=== PATIENT | male | born 1940 | race Caucasian/White ===

== ENCOUNTER 2023-06-09 20:52 | Emergency (ER) | payer MEDICARE, MEDICAID, SELFPAY ==
[2023-06-09] VITALS (11 sets, daily range): BP systolic 161–172; BP diastolic 82–93; PULSE 46–61; RESP 12–20; TEMP 36.4; O2SAT 95–98
--- NOTE | ~2023-06-09 | CT_ITS ---
EXAMINATION: CT brain wo con DATE: 06/09/2023 21:11 INDICATION: code stroke . TECHNIQUE: Computed tomography (CT) of the head was performed without intravenous contrast. The mA wa s adjusted according to patient size. Iterative reconstruction technique was employed. The dose-lengt h product was 681.00 mGy-cm. COMPARISON: None. FINDINGS: No acute intracranial hemorrhage or extra-axial fluid collection. No hydrocephalus, mass, or herniation. No acute ischemic infarct. Unremarkable dural venous sinus attenuation. No acute osseous abnormality. Mucosal thickening and opacification in the left ethmoid air cells, the remaining aerated spaces are clear. Moderate atrophy and severe chronic white matter change. Atherosclerotic intracranial calcification. Bilateral lens replacements. Serpiginous and linear hyperdensity in left medial frontal lobe gyri and adjacent to the the left external capsule, likely laminar necrosis. IMPRESSION: No acute intracranial process. Results reported telephonically to Dr. Mandujano by Dr. London at 9:16 PM on 06/09/2023. Reviewed, dictated and finalized at location K. IMPRESSION: No acute intracranial process. Results reported telephonically to Dr. Mandujano by Dr. London at 9:16 PM on .
--- NOTE | ~2023-06-09 | XR_ITS ---
EXAMINATION: XR chest 1V portable Exam Date/Time: 06/09/2023 21:20 CDT HISTORY: AMS Comparison: None. RESULT: Lines, tubes, and devices: None. Lungs and pleura: Senescent change, otherwise clear. Cardiomediastinal silhouette: Arch calcifications. Other: No acute osseous or upper abdominal finding. IMPRESSION: No acute cardiopulmonary process. Reviewed, dictated and finalized at location K.
[2023-06-09 21:00] LABS: Glucose Point of Care 162 mg/dl (65-105)
--- NOTE | 2023-06-09 21:03 | ECG_ITS ---
Measurements Intervals [place] Rate: 53 P: 11 ID: [id number] QRS: -1 QRSD: 102 T: 50 QT: 454 QTc: 429 Interpretive Statements SINUS BRADYCARDIA WITH FIRST DEGREE AV BLOCK WITH OCCASIONAL SUPRAVENTRICULAR PREMATURE COMPLEXES LEFT VENTRICULAR HYPERTROPHY AND ST-T CHANGE [VOLTAGE CRITERIA PLUS ST/T ABNORMALITY] INTERPRETATION BASED ON A DEFAULT AGE OF 40 YEARS NO PREVIOUS ECG AVAILABLE FOR COMPARISON Electronically Signed On 06-10-2023 12:15:43 CDT by Erwin Solorio M.D.
[2023-06-09 21:12] LABS: Basophils Percent Auto 0.3 % (0.2-1.2); Eosinophils Absolute Auto 0.2 K/mm3 (0-0.3); Eosinophils Percent Auto 2.6 % (0-4.4); Hematocrit 37.1 % (42.0-52.0); Hemoglobin 12.2 g/dL (14.0-18.0); Immature Granulocyte Absolute 0.01 K/mm3 (0.00-0.031); Immature Granulocyte Percent A 0.1 % (0-0.5); Lymphocytes Absolute Auto 1.62 K/mm3 (0.9-3.2); Lymphocytes Percent Auto 22.2 % (18.3-44.2); Mean Corpuscular HGB Conc 32.9 g/dl (32-36); Mean Corpuscular Volume 91.4 fl (80-100); Monocytes Absolute Auto 0.5 K/mm3 (0.1-0.6); Monocytes Percent Auto 7.1 % (2.6-8.5); Neutrophils Absolute Auto 4.9 K/mm3 (1.3-6.7); Neutrophils Percent Auto 67.7 % (45.5-73.1); Platelet Count Result 177 k/mm3 (150-375); Red Blood Count 4.06 M/mm3 (4.6-6.20); Red Cell Distribution Width 12.3 % (11.5-14.5); White Blood Count 7.3 K/mm3 (4.5-10.0)
[2023-06-09 21:23] LABS: Ethanol < 10 mg/dL (<10)
[2023-06-09 21:25] LABS: Alanine Aminotransferase 18 U/L (6-50); Albumin Level 3.8 g/dL (3.5-5.1); Alkaline Phosphatase 81 U/L (38-126); Anion Gap 3 mmol/L (8-16); Aspartate Amino Transferase 23 U/L (17-59); Bilirubin,Total 0.6 mg/dL (0.2-1.3); Blood Urea Nitrogen 14 mg/dL (9-20); Calcium 9.5 mg/dL (8.4-10.2); Carbon Dioxide 28 mmol/L (22-30); Chloride 106 mmol/L (98-107); Estimated CRCL calculation 68 ml/min; Estimated Glomerular Filt Rate > 60; Glucose 160 mg/dL (65-110); Potassium 3.4 mmol/L (3.4-5.0); Sodium 137 mmol/L (137-145)
--- NOTE | 2023-06-09 21:28 | PC.NURSE ---
Daughter at bedside reports that pt's speech is normal at this time.
[2023-06-09 21:36] LABS: Troponin I < 0.012 ng/mL (0.000-0.034)
[2023-06-09 21:44] LABS: Partial Thromboplastin Time 32.1 SECONDS (22.3-36.8)
[2023-06-09 22:09] LABS: Influenza A QL RT-PCR Negative (Negative); Influenza B QL RT-PCR Negative (Negative); RSV RNA, RT-PCR Negative (Negative); SARS-CoV-2 RNA PCR Negative (Negative)
[2023-06-09 22:39] LABS: Appearance Urine Clear (Clear); Bacteria Urine None Seen /hpf; Bilirubin Urine Negative (Negative); Blood Urine Negative (Negative); Calcium Oxalate Crystals Urine Present /hpf; Color Urine Yellow (Yellow); Glucose Urine UA Negative (Negative); Ketones Urine Negative (Negative); Leukocyte Esterase Ur Trace LEU/UL (Negative); Nitrate Urine Negative (Negative); Non Pathogenic Casts 0-2; Protein Urine Negative (Negative); RBC Urine 0-2 /hpf (0-2); Specific Grav Ur 1.018 (1.001-1.035); Squamous Epithelial Cell Urine None seen /hpf (Few); Urobilinogen Urine 0.2 mg/dL (<2.0); WBC Urine 0-5 /hpf; pH Urine 5.5 (5.0-9.0)
[2023-06-09 22:50] LABS: Add Urine Microscopic? YES
--- NOTE | 2023-06-10 00:15 | ED.GENADULT ---
HPI - General Adult General Chief complaint: Altered Mental Status Stated complaint: symptomatic bradycardia Time Seen by Provider: 06/09/23 21:00 History of Present Illness HPI narrative: Patient brought to the emergency department by EMS from his assisted facility. 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 The daughter was with him tonight when around 8 PM he started to have speech difficulties. He is not on anticoagulation due to having a hemorrhagic stroke. When he arrived to the emergency department his speech was clear without focal deficits. His speech would change at times but did not last. His daughter is at bedside and states that this happens sometimes since he had the stroke. Related Data Allergies Allergy/AdvReac Type Severity Reaction Status Date / Time hydrocodone Allergy Unknown Verified 06/09/23 21:03 minocycline Allergy Unknown Verified 06/09/23 21:15 morphine Allergy Unknown Verified 06/09/23 21:16 red dye Allergy Unknown Verified 06/09/23 21:16 Review of Systems Review of Systems: Review of systems negative except what is documented in the HPI Exam Narrative: GENERAL: Well-appearing, well-nourished, and in no acute distress. HEAD: Normocephalic, atraumatic. EYES: PERRLA and EOMI. ENT: Nares clear, no rhinorrhea or epistaxis. Mucous membranes moist. NECK: Supple. CHEST: Clear to auscultation. No respiratory distress. HEART: Regular rate and rhythm. ABDOMEN: Soft, nontender, nondistended. EXTREMITIES: Normal range of motion. No edema. SKIN: Warm, dry, no rash. NEURO: No focal deficits. Alert and oriented x3. PSYCH: Normal mood and affect. Course Course Emergency Course: Patient would vary from NIH score of 4 due to speech mild changes to 0 changes. Possible TIA but he cannot have any intervention due to having a hemorrhagic stroke. In addition, this is a residual speech change secondary to the stroke. He is back to normal and has been at his baseline for a couple hours. His daughter is getting very frustrated requesting to leave. They are frustrated about the second troponin that was ordered. His urinalysis was negative vital signs are stable and the additional work-up is normal. Will DC to home to follow-up with his primary care provider Vital Signs Vital signs: Vital Signs Temperature 36.4 C 06/09/23 21:17 Pulse Rate 50 L 06/09/23 21:17 Oxygen Delivery Room Air 06/09/23 21:17 Temperature 36.4 C 06/09/23 21:17 Pulse Rate 46 L 06/09/23 23:02 Respiratory Rate 16 06/09/23 23:02 Blood Pressure 161/92 H 06/09/23 22:46 Pulse Oximetry 96 06/09/23 23:02 Oxygen Delivery Room Air 06/09/23 21:17 Medical Decision Making Vital Signs Vital Signs: Vital Signs Temperature 36.4 C 06/09/23 21:17 Pulse Rate 50 L 06/09/23 21:17 Oxygen Delivery Room Air 06/09/23 21:17 Temperature 36.4 C 06/09/23 21:17 Pulse Rate 46 L 06/09/23 23:02 Respiratory Rate 16 06/09/23 23:02 Blood Pressure 161/92 H 06/09/23 22:46 Pulse Oximetry 96 06/09/23 23:02 Oxygen Delivery Room Air 06/09/23 21:17 Lab Data 06/09/23 21:04 06/09/23 21:04 Labs: Lab Results 06/09/23 06/09/23 06/09/23 Range/Units 20:56 21:04 21:22 WBC 7.3 (4.5-10.0) K/mm3 RBC 4.06 L (4.6-6.20) M/mm3 Hgb 12.2 L (14.0-18.0) g/dL Hct 37.1 L (42.0-52.0) % MCV 91.4 (80-100) fl MCH 30.0 (26-34) pg MCHC 32.9 (32-36) g/dl RDW 12.3 (11.5-14.5) % Plt Count 177 (150-375) k/mm3 MPV 10.0 (7.4-10.4) fl Immature Gran % (Auto) 0.1 (0-0.5) % Neut % (Auto) 67.7 (45.5-73.1) % Lymph % (Auto) 22.2 (18.3-44.2) % Brown % (Auto) 7.1 (2.6-8.5) % Eos % (Auto) 2.6 (0-4.4) % Baso % (Auto) 0.3 (0.2-1.2) % Lymph # (Auto) 1.62 (0.9-3.2) K/mm3 Brown # (Auto) 0.5 (0.1-0.6) K/mm3 Eos # (Auto) 0.2
== END 2023-06-10 00:34 ==
PROVIDERS: Emergency Provider Emergency Medicine; PCP Internal Medicine
DX: I69.128 Other speech and language deficits following nontraumatic intracerebral hemorrhage (principal); R47.9 Unspecified speech disturbances; Z20.822 Contact with and (suspected) exposure to COVID-19; I69.198 Other sequelae of nontraumatic intracerebral hemorrhage; R26.89 Other abnormalities of gait and mobility; I44.0 Atrioventricular block, first degree; I49.1 Atrial premature depolarization; I51.7 Cardiomegaly
CPT/HCPCS: 36415; 70450; 71045; 80053; 80307; 81001; 82948; 84484; 85025; 85610; 85730; 87637; 93005; 99284

== ENCOUNTER 2023-10-10 09:25 | Outpatient (CLI) | payer MEDICARE, OTHER, MEDICAID, SELFPAY ==
--- NOTE | ~2023-10-10 | CT_ITS ---
EXAMINATION: CT abdomen pelvis w con DATE: 10/10/2023 10:11 INDICATION: Localized swelling, mass, lump TECHNIQUE: Computed tomography (CT) of the abdomen and pelvis was performed with 100 CC Omnipaque 350 intravenous contrast. Automated exposure control and iterative reconstruction technique were employe d. Exam dose: 844.13 mGy-cm total exam DLP. COMPARISON: None. FINDINGS: There is minimal atelectasis at the lung bases. Coronary artery calcifications. No pericard ial or pleural effusion. Approximately 7 x 12 mm hypoattenuating right hepatic lesion, statistically most likely a cyst or hem angioma. No other hepatic space-occupying mass lesion is detected. There are multiple filling defects in the dependent aspect of the gallbladder consistent with choleli thiasis. No gallbladder wall thickening or pericholecystic fluid or fat stranding. No bile duct or pancreatic duct dilatation. No pancreatic mass lesion or calcification. Splenic size is within normal range. Normal morphology of the adrenal glands. Multiple probable right renal cysts, the largest approximately 2 cm maximal dimension. Up to 2.4 cm l eft renal cyst. Approximately 3.5 mm nonobstructing mid to lower right renal calculus. Approximately 5.5 mm and 7 mm posterior mid left renal nonobstructing calculi. There is extensive atherosclerotic calcification of the abdominal aorta, celiac, superior mesenteric, renal , iliac and femoral arteries. There are multiple diverticula of the colon. No CT evidence of diverticulitis. No bowel obstruction o r intraperitoneal free air. Status post prostatectomy. Julian's prosthesis. L2 vertebral hemangioma. Diffuse idiopathic skeletal hyperostosis of the thoracic spine. Degenerative changes of the apophyseal joints with grade 1 anterolisthesis at L5-S1. IMPRESSION: 7 x 12 mm hypoattenuating right hepatic lesion, statistically most likely cyst or malgorzata ioma Cholelithiasis Bilateral renal cysts Bilateral nonobstructive nephrolithiasis Diverticulosis of the colon Status post prostatectomy; Julian's prosthesis for urinary continence. Reviewed, dictated and finalized at Location A. Reviewed, dictated and finalized at location B. LRY SETTER IMPRESSION: 7 x 12 mm hypoattenuating right hepatic lesion, statistically most likely cyst or hemangioma Cholelithiasis Bilateral renal cysts Bilateral nonobstructive nephrolithiasis Diverticulosis of the colon Status post prostatectomy; Julian's prosthesis for urinary continence.
[2023-10-10 10:05] LABS: Estimated Glomerular Filt Rate > 60
== END 2023-10-10 09:26 | disposition home or self-care (01) ==
LOC: ANHIMG 09:31
PROVIDERS: PCP Internal Medicine; Visit Provider Internal Medicine
DX: R22.2 Localized swelling, mass and lump, trunk (principal); K76.9 Liver disease, unspecified; K80.20 Calculus of gallbladder without cholecystitis without obstruction; N20.0 Calculus of kidney; K57.90 Diverticulosis of intestine, part unspecified, without perforation or abscess without bleeding; Z90.79 Acquired absence of other genital organ(s)
CPT/HCPCS: 74177; Q9967

== ENCOUNTER 2025-02-20 13:53 | Emergency (ER) | payer MEDICARE, OTHER, MEDICAID, SELFPAY ==
--- NOTE | ~2025-02-20 | CT_ITS ---
CTA brain carotid Ordering provider: Darell Sullivan MD History: . weakness, headache, right-sided weakness, history of stroke. Comparison: 06/09/2023 Technique: CT angiogram head and neck was performed following timed intravenous injection of contrast . Thin slice axial images and reformatted coronal images were obtained. Three dimensional reformatted images of the brain were also obtained using a [employer] workstation. FINDINGS: HEAD: --ANTERIOR AND MIDDLE CEREBRAL ARTERIES AND BRANCHES: Normal caliber and contour. --INTERNAL CAROTID ARTERIES: Moderate atheromatous disease bilaterally resulting in mild stenosis but no occlusion. --BASILAR ARTERY AND BRANCHES: Mild atheromatous disease but no stenosis or occlusion. --POSTERIOR CEREBRAL ARTERIES: Normal caliber and contour --POSTERIOR COMMUNICATING ARTERIES: Not well visualized likely related to congenital absence or small size. --ANEURYSM: None visualized. --BRAIN: The ventricles are enlarged. The dilatation of the ventricles is proportional to the degree of sulcal prominence, not uncommon in the senescent brain. Decreased attenuation is identified within the periventricular white matter, likely secondary to micr ovascular ischemic disease, in a patient of this age. There is no mass, mass effect or midline shift. There is no abnormal extra-axial fluid collection or intracranial hemorrhage. Visualized paranasal sinuses are clear. The mastoid air cells are well aerated. No acute displaced fractures within the overlying cranium. NECK: --RIGHT CERVICAL CAROTID SYSTEM: Moderate atheromatous disease of the carotid bulb and proximal inter nal carotid artery. Percent stenosis per NASCET criteria is 5% No carotid dissection. --LEFT CERVICAL CAROTID SYSTEM: Mild atheromatous disease of the carotid bulb and proximal internal c arotid artery without significant stenosis. Percent stenosis per NASCET criteria is 12% No carotid d issection. --VERTEBRAL ARTERIES: Right vertebral artery dominant. Normal caliber and contour. --VISUALIZED AORTIC ARCH AND BRANCHING VESSELS: Moderate atheromatous disease but no significant sten osis. --SOFT TISSUES: Unremarkable --CERVICAL SPINE: Age appropriate degenerative changes. IMPRESSION: 1. Moderate atheromatous disease. 2. Percent stenosis per NASCET criteria is 5% on the right and 12% on the left. 3. No large vessel occlusion is appreciated. Reviewed, dictated and finalized at location A. IMPRESSION: 1. Moderate atheromatous disease. 2. Percent stenosis per NASCET criteria is 5% on the right and 12% on the lef t. 3. No large vessel occlusion is appreciated.
--- NOTE | ~2025-02-20 | XR_ITS ---
EXAMINATION: XR chest 1V portable DATE: 02/20/2025 14:04 INDICATION: Weakness TECHNIQUE: frontal view of the chest was obtained. COMPARISON: Chest radiograph dated 06/09/2023 FINDINGS: Mild opacities at the bilateral lung bases. No pulmonary edema, pleural effusion or pneumothorax. The cardiomediastinal silhouette is normal. IMPRESSION: 1. Mild bibasilar opacities and favor atelectasis over pneumonia. Reviewed, dictated and finalized at location A.
--- NOTE | 2025-02-20 13:56 | ECG_ITS ---
Test Date: 2025-02-20 14:05:56 Measurements Intervals [place] Rate: 60 P: 102 NH: 221 QRS: -14 QRSD: 85 T: 72 QT: 404 QTc: 405 Interpretive Statements SINUS RHYTHM WITH FIRST DEGREE AV BLOCK WITH OCCASIONAL VENTRICULAR PREMATURE COMPLEXES INFERIOR INFARCT, AGE INDETERMINATE BASELINE ARTIFACT- I, II, III, AVR, AVL, AVF, V4-V6 ABNORMAL ECG No previous ECG available for comparison Electronically Signed On 02-20-2025 17:21:05 CDT by Ronnie Rooney D.O.
[2025-02-20 13:57] VITALS: BP 134/70; PULSE 62; RESP 18; TEMP 36.6; O2SAT 94
--- NOTE | 2025-02-20 14:06 | ED.GENADULT ---
HPI - General Adult General Chief complaint: Headache Stated complaint: headache, weakness Time Seen by Provider: 02/20/25 13:55 History of Present Illness HPI narrative: 84-year-old male with prior history of CVA presented emergency department for evaluation for increased dizziness. Patient states this morning when he went ambulate he had increased dizziness which he described as a movement sensation. Denies any new weakness. Patient had been reportedly having a headache but patient denies having any headache last night or today. Patient does have right-sided deficit since his prior CVA, patient denies any acute worsening of the residual right-sided weakness. Patient does confirm that he has been taking therapy for the right leg weakness. Related Data Allergies Allergy/AdvReac Type Severity Reaction Status Date / Time hydrocodone Allergy Unknown Verified 06/09/23 21:03 minocycline Allergy Unknown Verified 06/09/23 21:15 morphine Allergy Unknown Verified 06/09/23 21:16 red dye Allergy Unknown Verified 06/09/23 21:16 Review of Systems Review of Systems: All systems reviewed & are unremarkable except as noted in HPI and below Exam Narrative: APPEARANCE: Well appearing, no pain, no distress, well-nourished. HEAD: normocephalic, atraumatic. EYES: PERRLA/EOMI, conjunctivae clear. NOSE: Normal no drainage EARS:TMS clear with good light reflex. THROAT: Pharynx clear, no exudate. NECK: Supple. No adenopathy, no masses. RESPIRATORY: Airway patent, respirations nonlabored. Clear to auscultation bilaterally, no rales, rhonchi, wheezing. CARDIOVASCULAR: Regular rate and rhythm without murmurs rubs or gallops. ABDOMINAL: Soft, nontender, nondistended, normal bowel sounds MUSCULOSKELETAL: Moves all extremities. Strength/ROM intact, No edema, No calf tenderness. NEURO: Alert. Cranial nerves II through XII intact. No right upper extremity weakness but does have right lower extremity weakness which she reports is at baseline. No new focal deficit SKIN: Warm, dry. Normal Color Course Vital Signs Vital signs: Vital Signs Temperature 98 F 02/20/25 13:57 Pulse Rate 62 02/20/25 13:57 Respiratory Rate 18 02/20/25 13:57 Blood Pressure 134/70 02/20/25 13:57 Pulse Oximetry 94 02/20/25 13:57 Oxygen Delivery Room Air 02/20/25 13:57 Temperature 98 F 02/20/25 13:57 Pulse Rate 64 02/20/25 14:47 Respiratory Rate 18 02/20/25 14:47 Blood Pressure 130/86 02/20/25 14:47 Pulse Oximetry 95 02/20/25 14:47 Oxygen Delivery Room Air 02/20/25 13:57 Medical Decision Making MDM Narrative Medical decision making narrative: 84 old male presenting to the emergency department for evaluation for vertigo symptoms. Patient states his dizziness is worsened with sitting up and improves with lying down. Patient denies any new focal numbness or weakness. Patient is afebrile with no leukocytosis hemoglobin of 13.3. Patient has an INR of 1.0. Patient has no acute abnormalities on his CMP and patient was negative influenza RSV and for COVID. Patient denies any recent coughs colds or fevers. Patient's chest x-ray showed atelectasis. Head CT showed no acute intracranial abnormalities. Patient did feel significantly improved with the meclizine. Patient family updated on results of the workup. Patient will be prescribed meclizine. Differential Diagnosis Differential Diagnosis: TIA, CVA, benign positional vertigo, central vertigo, dehydration, orthostatic hypotension, UTI, COVID, RSV, influenza Vital Signs Vital Signs: Vital Signs Temperature 98 F 02/20/25 13:57 Pulse Rate 62 02/20/25 13:57 Respiratory Rate 18 02/20/25 13:57 Blood Pressure 134/70 02/20/25 13:57 Pulse Oximetry 94 02/20/25 13:57 Oxygen Delivery Room Air 02/20/25 13:57 Temperature 98 F 02/20/25 13:57 Pulse Rate 64 02/20/25 14:47 Respiratory Rate 18 02/20/25 14:47 Blood Pressure 130/86 02/20/25 14:47 Pulse Oximetry 95 02/20/25 14:47 Oxygen Delivery Room Air 02/20/25 13:57 Lab Data Lab results reviewed: Yes I reviewed the patient's lab results. 02/20/25 14:11 02/20/25 14:35 Labs: Lab Results 02/20/25 02/20/25 02/20/25 Range/Units 14:11 14:31 14:35 WBC 7.8 (4.5-10.0) K/mm3 RBC 4.38 L (4.6-6.20) M/mm3 Hgb 13.3 L (14.0-18.0) g/dL Hct 40.3 L (42.0-52.0) % MCV 92.0 (80-100) fl MCH 30.4 (26-34) pg MCHC 33.0 (32-36) g/dl RDW 12.6 (11.5-14.5) % Plt Count 173 (150-375) k/mm3 MPV 11.2 H (7.4-10.4) fl Immature Gran % (Auto) 0.3 (0-0.5) % Neut % (Auto) 70.8 (45.5-73.1) % Lymph % (Auto) 17.0 L (18.3-44.2) % Burke % (Auto) 8.6 H (2.6-8.5) % Eos % (Auto) 2.8 (0-4.4) % Baso % (Auto) 0.5 (0.2-1.2) % Lymph # (Auto) 1.33 (0.9-3.2) K/mm3 Burke # (Auto) 0.7 H (0.1-0.6) K/mm3 Eos # (Auto) 0.2 (0-0.3) K/mm3 Baso # (Auto) 0.0 (0.0-0.1) K/mm3 Abs Immat Gran (auto) 0.02 (0.00-0.031) K/mm3 Absolute Neuts (auto) 5.5 (1.3-6.7) K/mm3 Absolute Nucleated RBC 0.000 (0.0-0.012) K/mm3 Nucleated RBC % 0.0 (0.0-0.2) % PT 13.1 (11.1-14.7) Seconds INR 1.0 APTT 29.6 (22.3-36.8) Seconds Sodium 139 (137-145) mmol/L Potassium 3.9 (3.4-5.0) mmol/L Chloride 104 (98-107) mmol/L Carbon Dioxide 27 (22-30) mmol/L Anion Gap 8 (4-12) mmol/L BUN 21 H (9-20) mg/dL Creatinine 0.93 (0.7-1.3) mg/dL Estim Creat Clear Calc Not Reportable Estimated GFR > 60 (59 - ) Glucose 114 H (65-110) mg/dL POC Capillary Glucose 118 H (65-105) mg/dl Lactic Acid 1.2 (0.7-2.0) mmol/L Calcium 9.8 (8.4-10.2) mg/dL Total Bilirubin 0.6 (0.2-1.3) mg/dL AST 20 (17-59) U/L ALT 15 (6-50) U/L Alkaline Phosphatase 74 (38-126) U/L Total Protein 6.9 (6.3-8.2) g/dL Albumin 3.8 (3.5-5.1) g/dL Influenza A (RT-PCR) Negative (Negative) Influenza B (RT-PCR) Negative (Negative) RSV (RT-PCR) Negative (Negative) SARS-CoV-2 RNA (RT-PCR) Negative (Negative) Imaging Data Radiologist's impression: Impressions Chest X-Ray 02/20/25 14:12 IMPRESSION: 1. Mild bibasilar opacities and favor atelectasis over pneumonia. Head/Neck CTA 02/20/25 15:39 IMPRESSION: 1. Moderate atheromatous disease. 2. Percent stenosis per NASCET criteria is 5% on the right and 12% on the left. 3. No large vessel occlusion is appreciated. Discharge Plan Discharge Clinical Impression: Vertigo Patient Disposition: NH Senior Care/Asst Living Condition: Stable Instructions: Antibiotic Form, Benign Paroxysmal Positional Vertigo (DC) Additional Instructions: Meclizine as needed for vertigo control. Have close follow-up with primary care physician for additional outpatient testing. If you have any worsening symptoms then please call or return to the emergency department. Patient Language: Citizen Of [place] Prescriptions: New meclizine 25 mg tablet 25 mg PO BID PRN (Reason: dizziness) 7 Days Qty: 14 0RF Follow-up/Referrals: Benjamin,MD Marcio [Primary Care Provider] -
--- OUTSIDE RECORDS SUMMARY | 2025-02-20 14:07 | XMS_ITS | Encounter Summary ---
Author Organization [facility] Healthcare Address [address] [place] [address] Care Team Providers Care Satellite Tv Technician Installer Name Role Phone Kyaw Guy MD Primary Care Provider Ralph Delaney MD Unavailable [phone] Encounter Details Date Type Department Care Team (Late st Contact Info) Description 09/16/2024 Orders Only [facility] [place] Information Management [address] [place] [address] Scanning, Provider Social History Tobacco Use Types Packs/Day Years Used Date Smoking Tobacco: Never Smokeless Tobacco: Never Alcohol Use Standard Drinks/Week Comments Yes 0 (1 standard drink = 0.6 oz pur e alcohol) AUDIT-C Answer Date Recorded Q1: How often do you have a drink containing alcohol? Never 08/29/2023 Q2: How many drinks containi ng alcohol do you have on a typical day when you are drinking? Patient does not drink Q3: How often do you have si x or more drinks on one occasion? 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 Gender Identity Male 12/11/2023 6:23 PM CDT Sexual Orientation Straight 12/11/2023 6: 23 PM CDT documented as of this encounter Plan of Treatment Not on file documented as of this encounter Procedures Procedure Name Priority Date/Time Associated Diagnosis Comments SCAN - LABS 09/16/2024 documented in this encounter Results * SCAN - LABS (09/16/2024) us Provider Scanning Final Result documented in this encounter Visit Diagnoses Not on filedocumented in this encounter Care Teams Satellite Tv Technician Installer Relationship Specialty Start Date End Date Kyaw Guy MD PCP - General 12/06/16 Ralph Delaney MD [address] [place] [address] [place] [address] Referring Physician Ophthalmology 04/05/20 documented as of this encounter
--- OUTSIDE RECORDS SUMMARY | 2025-02-20 14:07 | XMS_ITS | Encounter Summary ---
Author Organization [facility] Address [address] [facility] [address] [place] [address] Care Team Providers Care Chimney Builder Name Role Phone Kyaw Guy MD Primary Care Provider Kyaw Guy MD Primary Care Provider Kyaw Guy MD Primary Care Provider Kyaw Guy MD Primary Care Provider Kyaw Guy MD Primary Care Provider Kyaw Guy MD Primary Care Provider Kyaw Guy MD Primary Care Provider Miley Cantor RN Unavailable [phone] Ralph Delaney MD Unavailable [phone] Lise Falcon LPN Unavailable [phone] Lise Falcon LPN Unavailable [phone] Lise Falcon LPN Unavailable [phone] Reason for Referral * Diagnostic Imaging (Routine) - Closed Specialty Diagnoses / Procedures Referred By Contac t Referred To Contact Procedures Dexa Axial Skeleton Bone Density 1 or 2 Site [facility] Health Information Management [address] [place] [address] Phone: tel: fax: [facility] Referral ID Status Reason Start Date Expiration Date Visits Re quested Visits Authorized [id number] Closed 04/08/2019 2020 1 1 Encounter Details Date Type Department Care Team (Late st Contact Info) Description 04/07/2003 Orders Only [facility] Health Information Management [address] [place] [address] Kyaw Guy MD [address] [place] [address] [address] Social History Tobacco Use Types Packs/Day Years Used Date Smoking Tobacco: Never Assessed Sex and Gender Information Value Date Recorded Sex Assigned at Not on file 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 Gender Identity Male 12/11/2023 6:23 PM CDT Sexual Orientation Straight 12/11/2023 6: 23 PM CDT documented as of this encounter Plan of Treatment Not on file documented as of this encounter Procedures Procedure Name Priority Date/Time Associated Diagnosis Comments DEXA AXIAL SKELETON BONE DENSITY 1 OR MORE SITES Schedule Routine, Read Routine (OP Routine) 04/07/2003 documented in this encounter Results * Dexa Axial Skeleton Bone Density 1 or 2 Site (04/07/2003) Anatomical Region Laterality Modality Body N/A Radiographic Lena ging Felicita Provider MD [facility] DXA PROCEDURES Final Result documented in this encounter Visit Diagnoses Not on filedocumented in this encounter Care Teams Chimney Builder Relationship Specialty Start Date End Date Kyaw Guy MD PCP - General 12/06/16 Kyaw Guy MD PCP - General 11/20/12 12/05/16 Kyaw Guy MD PCP - General 05/08/12 11/19/12 Kyaw Guy MD PCP - General 10/15/07 05/07/12 Kyaw uGy MD PCP - General 03/02/07 10/14/07 Kyaw Guy MD PCP - General 01/22/07 03/01/07 Kywa Guy MD PCP - General 01/15/07 01/21/07 Miley Cantor, MARTY [address] [place] [address] [address] [place] [address] Inhalation Therapist 10/15/17 12/21/17 Ralph Delaney MD [address] [place] [address] [place] [address] Referring Physician Ophthalmology 04/05/20 Lise Falcon LPN [address] [place] [address] [address] [place] [address] ACO Care Memorial Designer 07/23/22 08/01/22 Lise Falcon LPN [address] [facility] [address] [place] [address] ACO Care Memorial Designer 08/02/22 11/14/22 Lise Falcon LPN [address] [facility] [facility] [address] [place] [address] ACO Care Memorial Designer 11/19/22 12/03/22 documented as of this encounter
--- OUTSIDE RECORDS SUMMARY | 2025-02-20 14:07 | XMS_ITS | Referral Summary ---
Author Organization [facility] Address [address] [place] [address] Care Team Providers Care Clinical Education Coordinator Name Role Phone Kyaw Guy MD Primary Care Provider Ralph Delaney MD Unavailable [phone] Encounters Date Type Department Care Team Description 12/28/2024 Orders Only [facility] Primary Care at [address] [place] [id number] Kyaw Guy MD 12/28/2024 Telephone [facility] Primary Care at [address] [place] [address] Kyaw Guy MD Symptom Based Call from Last 3 Months Allergies Active Allergy Reactions Criticality Noted Date Comments Emollient Combination No. 16 Unknown Minocycline Syncope High 12/24/2010 Morphine Hypotension,Other (S ee comments) High 09/10/2010 Other reaction(s): Hypotension Passed out Other Rash Medium 04/16/2019 Received name: Skin Cleanser Skin Cleanser Rash Medium Hydrocodone-Acetamino phen Hallucinations Medium 02/10/2013 Medications fluticasone propionate (FLONASE) 50 mcg/actuation nasal spray Administer 1 spray into each nostril daily 48 mL 11 2 Active rosuvastatin (CRESTOR) 20 mg tablet Take 1 tablet (20 mg total) by mouth daily 2 Active acetaminophen (TYLENOL) 325 mg tablet Take 2 tablets (650 mg total) by mouth every 4 (four) hours as needed for pain 30 tablet 2 Active amLODIPine (NORVASC) 10 mg tablet Take 1 tablet (10 mg total) by mouth daily 30 tablet 11 2 Active sertraline (ZOLOFT) 100 mg tablet Take 1 tablet (100 mg total) by mouth daily For mood 90 tablet 3 3 Active cyanocobalamin (Vitamin B-12) 1,000 mcg tabletIndications: Prevention of Vitamin B12 Deficiency Take 1 tablet (1,000 mcg total) by mouth daily Active senna-docusate (PERICOLACE) 8.6-50 mg Take 1 tablet by mouth 2 (two) times a day before breakfast and dinner Active cholecalciferol (VITAMIN D-3) 5,000 unit capsule Take 1 capsule (5,000 Units total) by mouth daily Active ascorbic acid 500 mg tablet,chewable Take 1 tablet/chew tab (500 mg total) by mouth daily Active ferrous sulfate 325 mg (65 mg of elemental iron) tablet Take 1 tablet (325 mg total) by mouth daily Active lansoprazole (PREVACID SOLUTAB) 30 mg disintegrating tablet daily 2 Active famotidine (PEPCID) 20 mg tabletIndications: Laryngeal spasm Take 1 tablet (20 mg total) by mouth nightly 90 tablet 3 3 Active atorvastatin (LIPITOR) 40 mg tablet 3 Active carvediloL (COREG) 25 mg tablet 3 Active aspirin 81 mg enteric coated tablet Take 1 tablet (81 mg total) by mouth daily 3 Active clotrimazole (LOTRIMIN) 1 % external solutionIndication s:Otitis externa, fungal, left ear Apply topically 2 (two) times a day 30 mL 4 025 Active diphenhydrAMINE-zi nc acetate creamIndications:P ruritus of Skin,skin irritation Apply topically 3 (three) times a day as needed for itching 35 g 11 5 Active Active Problems Problem Noted Date Diagnosed Date Hemiplegia and hemiparesis f ollowing cerebral infarction affecting right dominant side 03/09/2024 Late effects of cerebral ischemic stroke 023 Morbid (severe) obesity due to excess calories 0 10/30/2021 Medicare annual wellness visit, subsequent 04/27 History of superficial keratectomy OS 11/15/2020 Assessment & Plan (12/27/2020 2:04 PM CDT): SND both eyes (OU), OS>OD Hx of Super K left eye (OS) 09/27/20 visual acuity (VA) improved to 20/25 with current specs Better intraocular pressure (IOP) after reducing Tobradex Patient wants to improve his vision to 20/20 left eye (OS); the limitation of vision discussed Plan Discontinue all meds and only use artificial tears RTC prn Assessment & Plan (11/15/2020 2:34 PM VALVE MAKER): SND OU Now POW#6 Super K left eye (OS) 09/27/20 SND OS>OD Doing well with vision, slightly elevated intraocular pressure (IOP) Plan - Removal of BCL left eye (OS) today - continue TD BID left eye (OS), combigan MJ (or Timoptic and alphagan BID) OD RTC 4-6 weeks 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 Assessment & Plan (10/18/2020 2:40 PM VALVE MAKER): SND OU Now POW#3 Super K OS Hx of bilateral corneal swelling (Pachymetry 646 um OD; 642 um OS) SND OS>OD Med BCL and Tobradex 1gtt QID post-op Plan - keep BCL for total of 6 weeks - continue TD QID OS RTC 3 weeks Assessment & Plan (10/02/2020 1:56 PM VALVE MAKER): SND OU Now POD5 Super K OS Hx of bilateral corneal swelling (Pachymetry 646 um OD; 642 um OS) Persistent SND OS>OD Med BCL and Tobradex 1gtt QID post-op Toradol as needed (20# given) RTC 2 weeks, sooner if any problem Assessment & Plan (09/30/2020 9:07 PM VALVE MAKER): POD#3 superficial keratectomy OS with Dr. Aguilera for SND (09/27/20). Presents to [facility] after hours for concern for dislodged BCL, unable to adjust/remove and no replacements at home. Vision improved, pupils normal, no APD BCL correctly in place upon examination with good fit. Did not remove and kept in place. Continue tobradex 1gtt QID Keep clinic follow up with Dr. Aguilera for 10/02/20. Will notify him of visit. Call sooner for any questions/concerns or if worried BCL has dislodged/removed again. Pt/daughter expressed understanding. Assessment & Plan (09/30/2020 6:54 PM VALVE MAKER): POD#3 superficial keratectomy OS with Dr. Aguilera for SND (09/27/20). Presents to [facility] after hours for dislodged BCL, unable to adjust/remove and no replacements. BCL removed. New BCL replaced. Continue tobradex 1gtt QID Keep clinic follow up with Dr. Aguilera for 10/02/20. Will notify him of visit. Assessment & Plan (09/27/2020 2:58 PM VALVE MAKER): Hx of SND and possible superk left eye (OS) today Patient c/o fluctuating vision in both eyes No pain Hx of bilateral corneal swelling (Pachymetry 646 um OD; 642 um OS), Likely due to tight lens OU Persistent SND OS>OD Failed BCL trials Superficial K OS today R/B/A of sup K discussed RBA of sup K discussed. Sup k performed after informed consent without difficulty. Med BCL and Tobradex 1gtt QID post-op Toradol as needed (20# given) RTC 5 days , sooner if any problem Assessment & Plan (07/05/2020 4:09 PM CDT): 2 week F/u bilateral corneal swelling and possible superk OD Patient c/o fluctuating vision in both eyes Says that his eyes were great the day after his last visit but then deteriorated again No pain Persistent SND OS>OD Failed BCL trials Last visit has bilateral corneal swelling (Pachymetry 646 um OD; 642 um OS), Likely due to tight lens OU Rec Superficial K OS then OD if needed. Pt wants OD first initially to be ready for deer hunting season. But the hunting season is over, so he is more flexible for the eye to have surgery. RBA of sup K discussed. Pt wishes to proceed. The need of BCL after sup K discussed Will cpntinue Angelica 128 QID OU and RTC 2 weeks for possible Sup K Assessment & Plan (06/21/2020 12:06 PM CDT): SND OS>OD Today has bilateral corneal swelling (Pachymetry 646 um OD; 642 um OS), Likely due to tight lens OU BCL removed OU Rec Super K OS then OD if needed. Pt wants OD first to be ready for deer hunting season. RBA of superK discussed. Pt wishes to proceed. The need of BCL after sup K discussed Will use Angelica 128 QID OU and RTC 2 weeks for possible SuperK OD. Assessment & Plan (06/05/2020 1:36 PM CDT): SND OS>OD Rec Super K OS then OD if needed. Pt wants OD first to be ready for deer hunting season. RBA of superK discussed. Pt wishes to proceed. Schedule SuperK OD. Assessment & Plan (04/05/2020 3:39 PM CDT): Self referred for second opinion for blurred vision. 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 Offered RBA of obs vs rigid gas permeable (RGP) vs SuperK RTC PRN, if pt returns - schedule consultation with Dr. Aguilera. Pt requests Dr. 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 Overview (12/12/2016): MIXED HYPERLIPIDEMIA Gastroesophageal reflux disease 01/22/2014 Overview (12/12/2016): ESOPHAGEAL REFLUX Atrial fibrillation 07/27/2013 Overview (12/12/2016): Atrial Fibrillation Resolved Problems Problem Noted Date Diagnosed Date Resolved Date Otitis externa, fungal, left ear 07/28/2024 10/02/2024 Assessment & Plan (08/20/2024 12:12 PM VALVE MAKER): Avoid ear cleaning techniques Avoid water to ears Follow up as needed Assessment & Plan (07/28/2024 2:57 PM VALVE MAKER): Lotrimin 10 drops into Left EAR, NOT EYE, twice daily for 14 days Avoid ear cleaning techniques Avoid water to ears Follow up in 2-3 weeks to recheck Then yearly for ear checks How to Use Ear Drops Bilateral impacted cerumen 07/28/2024 0 10/02/2024 Assessment & Plan (07/28/2024 2:58 PM VALVE MAKER): Lotrimin 10 drops into Left EAR, NOT EYE, twice daily for 14 days Avoid ear cleaning techniques Avoid water to ears Follow up in 2-3 weeks to recheck Then yearly for ear checks How to Use Ear Drops 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 10/02/19 Laryngeal spasm 01/15/2023 10/02/2024 Assessment & Plan (01/15/2023 4:24 PM CDT): Pepcid 20 mg at bedtime 50 ounces of caffeine free and soda free fluid daily Continue to work with speech therapy to strengthen voice Laryngopharyngeal reflux discussed and Handout provided Severe protein-calorie malnutrition 11/16/2022 10/02/2024 Confusion 11/14/2022 10/02/2024 Stroke determined by clinical assessment 07/13/2022 10/02/2024 Hemoptysis 05/02/2022 10/02/2024 Dizziness and giddiness 03/14/202209/09 Prediabetes 10/30/2021 10/02/2024 Shoulder tendonitis, left 03/22/2019 01 / Chronic fatigue 03/22/2019 04/16/2019 Gross hematuria 02/25/2018 04/15/2018 Hemoptysis 05/09/2017 10/02/2024 Assessment & Plan (12/14/2021 11:25 AM CDT): Nasal saline spray (Simply saline, Little Remedies, [place], [place]) 2 second sprays or 2 squeezes into each nostril while looking down over the sink, do not need to sniff in twice daily Have Humidifier on the Highest setting on the CPAP No masses, polyps or ulcers in the Upper Airway on Scope today Assessment & Plan (09/13/2021 3:38 PM VALVE MAKER): Likely 2/2 cpap machine in combination with warfarin use INR in office 4.0. 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 Discussed the risks of hypertension. Insomnia 03/26/2012 10/02/2024 Overview (12/12/2016): Insomnia Calculus of kidney 03/26/2012 Overview (12/13/2016): Kidney stone Malignant neoplasm of prostate 03/07/2011 04/15/2018 Overview (12/12/2016): Prostate cancer Depression 03/07/2011 03/22/2019 Overview (12/13/2016): Depression Dehydration 10/02/2024 Immunizations Immunization Administration Dates Next Due Influenza, Quadrivalent, Hig h Dose, Preservative Free, Intrr 08/13/2021,08/25/2020 Influenza, Split 08/15/2010 Influenza, Trivalent, High D ose, Split, Preservative Free, Intramuscular 06/22/2019,06/24/2018,07/11/2017,06/10,07/18/2015 Influenza, Trivalent, IM (MDV) 4,07/08/2013,07/01/2012,06/19,06/21/2009,08/27/2008 Influenza, Unspecified 10/01/2024(Deferr ed: Patient Refused),06/30/2023(Deferred: Patient Refused),11/17/2022(Deferred: Patient Refused),05/04/2020(Deferred: Patient Refused - vaccine not being given) Pneumococcal Conjugate PCV 13 07/18/2015 Pneumococcal Polysaccharide PPV23 04/27/2021 Social History Tobacco Use Types Packs/Day Years Used Date Smoking Tobacco: Never Smokeless Tobacco: Never Tobacco Cessation:Counseling Given: Not Answered Alcohol Use Standard Drinks/Week Comments Yes 0 [...] on file Legal Sex Male 7:27 PM VALVE MAKER Gender Identity Male 12/11/2023 6:23 PM CDT Sexual Orientation Straight 12/11/2023 6: 23 PM CDT Last Filed Vital Signs Vital Sign Reading Time Taken Comments Blood Pressure 116/70 10/01/2024 3:21 PM VALVE MAKER Pulse 71 10/01/2024 3:21 PM VALVE MAKER Temperature 36.6 C (97.8 F) 10/01/2024 3:21 PM VALVE MAKER Respiratory Rate 16 10/01/2024 3:21 PM VALVE MAKER Oxygen Saturation 96% 10/01/2024 3:21 PM VALVE MAKER Inhaled Oxygen Concentration - - Weight 104.8 kg (231 lb) 10/01/2024 3:21 PM VALVE MAKER Height 182.9 cm (6') 10/01/2024 3:21 PM VALVE MAKER Body Mass Index 31.33 10/01/2024 3:21 PM VALVE MAKER Plan of Treatment Not on file Procedures Procedure Name Priority Date/Time Associated Diagnosis Comments PSA SCREEN Routine 04/18/2021 12:04 PM CDT Urine frequency HM COLONOSCOPY Routine 03/31/2007 from Last 3 Months or Most Recently Relevant to Health Maintenance Results * PSA screen (04/18/2021 12:04 PM CDT) PSA <0.1 < OR = 4.0 ng/mL [facility]-Eddi bowman Comment: The total PSA value from this assay system is standardized against the WHO standard. The test result will be approximately 20% lower when compared to the equimolar-standardized total PSA (Wendie Juan Jose). Comparison of serial PSA results should be interpreted with this fact in mind. This test was performed using the Siemens chemiluminescent method. Values obtained from different assay methods cannot be used interchangeably. PSA levels, regardless of value, should not be interpreted as absolute evidence of the presence or absence of disease. Blood specimen (specimen) 04/18/2021 12:04 PM CDT 04/18/2021 12:05 PM CDT us Kyaw Guy MD LAB BLOOD ORDERABLES Fi nal Result [facility] [address] [place] [address] * HM COLONOSCOPY (03/31/2007) Colonoscopy Abnormal Comment:Subacute diverticuli tis, 8 mm polyp. us Historical Provider MD HEALTH MAINTENANCE Final Result from Last 3 Months or Most Recently Relevant to Health Maintenance Insurance [facility]IC[facility] [place]IC[place] [address] Advance Directives For more information, please contact: [phone] Documents on File Type Date Recorded Patient Brick Tester Expl anation ADVANCE DIRECTIVE 11/15/2022 1:21 PM DNR * Full Code (Latest Code Status on File) Date Activated Date Inactivated Comments 11/14/2022 4:49 PM 11/18/2022 7:09 PM * Full Code Date Activated Date Inactivated Comments 07/13/2022 2:19 PM 07/22/2022 7:03 PM Care Teams Clinical Education Coordinator Relationship Specialty Start Date End Date Kyaw Guy MD PCP - General 12/06/16 Ralph Delaney MD [address] [place] [address] Referring Physician Ophthalmology 04/05/20
--- OUTSIDE RECORDS SUMMARY | 2025-02-20 14:07 | XMS_ITS ---
Author Organization [facility] Address [address] [place] [address] Care Team Providers Care Practice Billing Associate Name Role Phone Kyaw Guy MD Primary Care Provider Ralph Delaney MD Unavailable [phone] Active Problems Problem Noted Date Diagnosed Date [...] prn Assessment & Plan (11/15/2020 2:34 PM OUTREACH SPECIALIST): SND OU Now POW#6 Super K left [...] 04/05/2020 Assessment & Plan (10/18/2020 2:40 PM OUTREACH SPECIALIST): SND OU Now POW#3 Super K OS Hx of bilateral corneal swelling (Pachymetry 646 um OD; 642 um OS) SND OS>OD Med BCL and Tobradex 1gtt QID post-op Plan - keep BCL for total of 6 weeks - continue TD QID OS RTC 3 weeks Assessment & Plan (10/02/2020 1:56 PM OUTREACH SPECIALIST): SND OU Now POD5 Super K OS Hx of bilateral corneal swelling (Pachymetry 646 um OD; 642 um OS) Persistent SND OS>OD Med BCL and Tobradex 1gtt QID post-op Toradol as needed (20# given) RTC 2 weeks, sooner if any problem Assessment & Plan (09/30/2020 9:07 PM OUTREACH SPECIALIST): POD#3 superficial keratectomy OS with Dr. Aguilera for SND (09/27/20). Presents to U after hours for concern for dislodged BCL, [...] understanding. Assessment & Plan (09/30/2020 6:54 PM OUTREACH SPECIALIST): POD#3 superficial keratectomy OS with Dr. Aguilera for SND (09/27/20). Presents to [facility] after hours for dislodged BCL, unable to adjust/remove and no replacements. BCL removed. New BCL replaced. Continue tobradex 1gtt QID Keep clinic follow up with Dr. Aguielra for 10/02/20. Will notify him of visit. Assessment & Plan (09/27/2020 2:58 PM OUTREACH SPECIALIST): Hx of SND and possible superk left [...] Atrial fibrillation 07/27/2013 Overview (12/12/2016): Atrial Fibrillation Current Treatment and Therapy Plans No current plan information found. Past Treatment and Therapy Plans No past plan information found. Lifetime Dose Tracking * Chemical Lifetime Dose Automatic Entry Manual Entr y DLP 3,169 mGycm 3,169 mGycm 0 mGycm Resolved Problems Problem Noted Date Diagnosed Date Resolved Date Otitis externa, fungal, left ear 07/28/2024 10/02/2024 Assessment & Plan (08/20/2024 12:12 PM OUTREACH SPECIALIST): Avoid ear cleaning techniques Avoid water to ears Follow up as needed Assessment & Plan (07/28/2024 2:57 PM OUTREACH SPECIALIST): Lotrimin 10 drops into Left EAR, NOT EYE, twice daily for 14 days Avoid ear cleaning techniques Avoid water to ears Follow up in 2-3 weeks to recheck Then yearly for ear checks How to Use Ear Drops Bilateral impacted cerumen 07/28/2024 0 10/02/2024 Assessment & Plan (07/28/2024 2:58 PM OUTREACH SPECIALIST): Lotrimin 10 drops into Left EAR, NOT [...] Prediabetes 10/30/2021 10/02/2024 Shoulder tendonitis, left 03/22/2019 Chronic fatigue 03/22/2019 04/16/2019 Gross hematuria 02/25/2018 04/15/2018 Hemoptysis 05/09/2017 10/02/2024 Assessment & Plan (12/14/2021 11:25 AM CDT): Nasal saline spray (Simply saline, Little Remedies, [place], [place]) 2 second sprays or 2 squeezes into each nostril while looking down over the sink, do not need to sniff in twice daily Have Humidifier on the Highest setting on the CPAP No masses, polyps or ulcers in the Upper Airway on Scope today Assessment & Plan (09/13/2021 3:38 PM OUTREACH SPECIALIST): Likely 2/2 cpap machine in combination with warfarin use INR in office 4.0. 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
--- OUTSIDE RECORDS SUMMARY | 2025-02-20 14:07 | XMS_ITS | Clinical Summary ---
Author Organization [facility] Address [address] [place] [address] Phone Care Team Providers Care Corporate Development Officer Name Role Phone Kyaw Guy MD Primary Care Provider [phone] Allergies Active Allergy Reactions Criticality Noted Date Comments Hydrocodone-Acetaminophen Hallucination Low 013 Minocycline Syncope Medium 12/24/2010 Morphine Hypotension Medium 12/24/2010 Skin Cleanser Rash Low Medications sertraline (ZOLOFT) 50 mg tablet Take 100 mg by mouth daily. Active amLODIPine (NORVASC) 10 mg tablet Take 10 mg by mouth daily. Active ascorbic acid, vitamin C, (VITAMIN C) 500 mg tablet Take 500 mg by mouth daily. Active atorvastatin (LIPITOR) 40 mg tablet Take 40 mg by mouth daily. Active bisacodyL (DULCOLAX) 10 mg Suppository Insert 10 mg by rectum daily. Active magnesium citrate (Citroma) solution Take 30 mL by mouth one time only. Active carvediloL (COREG) 25 mg tablet Give 1.5 tablet by mouth two times day for CHF. Active ferrous sulfate 325 mg (65 mg iron) tablet Take 325 mg by mouth daily. Active fluticasone propionate (FLONASE) 50 mcg/spray [place], Suspension nasal inhaler Administer 1 [place] in each nostril daily. Active magnesium hydroxide (MILK OF MAGNESIA) 400 mg/5 mL suspension Take 30 mL by mouth 1 time daily as needed for Constipation. Active sennosides-docu sate sodium (Senna Plus) 8.6-50 mg tablet Take 1 Tablet by mouth daily. Active aspirin (ECOTRIN EC) 81 mg Tablet, Delayed Release (E.C.) Take 81 mg by mouth daily. Active sacubitriL-vals rebecca (Entresto) 49-51 mg Tablet Take by mouth 2 times daily. Active famotidine (PEPCID) 20 mg tablet Take 20 mg by mouth 2 times daily. Active hydrALAZINE (APRESOLINE) 10 mg tablet Take 10 mg by mouth 4 times daily. Active hydrocortisone (CORTAID) 1 % Cream Apply to affected area 2 times daily. Active hydrOXYzine HCL (ATARAX) 25 mg tablet Take 25 mg by mouth 3 times daily as needed for Itching. Active mirabegron (MYRBETRIQ) 25 mg Extended Release 24 hour tablet Take 25 mg by mouth daily. Active vibegron (Gemtesa) 75 mg Tablet Take by mouth. 025 Discontinued Active Problems Patient Care Coordination No te Formatting of this note migh t be different from the original. Desktop Administrator- Dr. Missy Campoverde Office Dilshad Louis MD- [facility] Heart [facility] V[facility] ( [facility]) Problem Noted Date Diagnosed Date Acute chest pain 04/18/2017 JULIET (stress urinary incontinence), male 02/23/20 13 Coronary artery disease invo lving [place] coronary artery of [place] heart with unstable angina pectoris 02/13/2013 Essential hypertension 02/13/2013 Dyslipidemia 02/13/2013 Stress incontinence 01/02/2011 PAF (paroxysmal atrial fibrillation) MATIAS on CPAP Acute encephalopathy Resolved Problems Problem Noted Date Diagnosed Date Resolved Date Atrial fibrillation 05/14/2013 08/14/20 16 Encounters Date Type Department Care Team Description 02/07/2025 Results Follow-Up [facility] [address] [place] [address] [place] [phone] Linda Burroughs RN ECHO COMPLETE - CONTRAST AND STRAIN IF INDICATED 02/03/2025 3:00 PM CDT Office Visit [facility] [address] [place] [address] [address] [place] [address] Dilshad Louis MD Aortic valve stenosis, etiology of cardiac valve disease unspecified (Primary Dx); Essential hypertension; Paroxysmal atrial fibrillation (CMS/HCC); Coronary artery disease involving [place] coronary artery of [place] heart without angina pectoris; MATIAS (obstructive sleep apnea); Dyslipidemia 02/03/2025 2:00 PM CDT - 02/03/2025 11:59 PM CDT Hospital Encounter [facility] Diagnostic Cardiology Services [address] [phone] Dilshad Louis MD Discharge Disposition: Home or Self Care 01/04/2025 External Device Data STL ABSTRACTION Provider, Abstract 12/07/2024 External Device Data STL ABSTRACTION Provider, Abstract 11/24/2024 External Device Data STL ABSTRACTION Provider, Abstract from Last 3 Months Immunizations Immunization Administration Dates Next Due Influenza Seasonal Unspecified Formulation IM ,06/18/2016 Family History Medical History Relation Name Comments Lung Cancer Father Heart Disease Mother Relation Name Status Comments Daughter 1 Alive Daughter 2 Alive Daughter 3 Alive Daughter 4 Alive Father Mother Social History Tobacco Use Types Packs/Day Years Used Date Smoking Tobacco: Former Cigarettes 1 45 0 04/08/1960 - 04/08/2005 Tobacco Cessation:Counseling Given: Not Answered Alcohol Use Standard Drinks/Week Comments Yes 0 (1 standard drink = 0.6 oz pur e alcohol) rare Sex and Gender Information Value Date Recorded Sex Assigned at Not on file Legal Sex Male 4:[address] BAILIFF [place] SHERIFF Gender Identity Not on file Sexual Orientation Not on file Occupation Industry Job Start Date Job End Date Not on file Not on file Not on file Not on file Last Filed Vital Signs Vital Sign Reading Time Taken Comments Blood Pressure 128/76 02/03/2025 3:01 PM CDT Pulse 70 02/03/2025 3:01 PM CDT Temperature 36.3 C (97.4 F) 06/07/2021 3:12 PM CDT Respiratory Rate 15 04/07/2019 6:03 AM CDT Oxygen Saturation 93% 02/03/2025 3:01 PM CDT Inhaled Oxygen Concentration - - Weight 104.3 kg (230 lb) 02/03/2025 3:01 PM CDT Height 170.2 cm (5' 7) 02/03/2025 3:01 PM CDT Body Mass Index 36.02 02/03/2025 3:01 PM CDT Plan of Treatment Upcoming Encounters Date Type Department Care Team (Late st Contact Info) Description 08/11/2025 3:[address] [place]IFF [place] Office Visit [facility] V[facility] - [facility] [address] [facility] [address] [place] [address] Dilshad Louis MD [address] [facility] [address] [place] [address] Health Maintenance Due Date Last Done Comments DTAP/TDAP/TD VACCINES (1 - Tdap) 1959 ZOSTER VACCINE (1 of 2) 1990 RSV VACCINE (60+ or ) (1 - 1-dose 75+ series) 2015 INFLUENZA VACCINE (#1) 2024 , 08/25/2020, 06/22/2019, Additional history exists PNEUMOCOCCAL VACCINE 50+ YEARS Completed 04/27/2021 , 07/18/2015 Medical Devices Implanted Type Area Bartacker Device Identifier Shelf Expiration Date Model / Serial / Lot Log [id number] - Urinary Sphincter Tray - 1 - Kit Accry Iz Ams 800 [id number] Implanted:Qty : 1 on 01/02/2011 at [facility] Other N/A: Scrotum [employer]MS [employer] 12/21/2015 [id number] / / [id number] Kit Accry Iz Ams 800 [id number] - [id number] Implanted:Qty : 1 on 02/22/2013 by Sree Wiley MD at [facility] Other Right: Groin [employer]MS [employer] 02/12/2018 [id number] / / [id number] Description:perineum Log 55400 - Urinary Sphincter Tray - 1 - Sphnctr [id number] Press Baln [id number] Implanted:Qty : 1 on 01/02/2011 at [facility] Penile Right: Groin [employer]MS [employer] 11/07/2015 [id number] / / [id number] Promus Premier Piter-04/19/2017 Implanted:08/2017 by Garett Galloway MD (Quantity not on file) Stent Coronary [employer] 06/15/2018 / / [id number] Description:MID PDA Promus Premier Piter-04/19/2017 Implanted:08/2017 by Garett Galloway MD (Quantity not on file) Stent Coronary [employer] 05/24/2018 / / [id number] Description:MID PDA Synergy-2018 Implanted: by Garett Galloway MD (Quantity not on file) Stent [id number] 08/25/2020 / / [id number] Description:placed in the RC A Ams 800 Urinary Control System Control Pump Implanted:Qty : 1 on 01/02/2011 at [facility] Scrotum [employer]MS [employer] 12/20/2015 [id number] / / [id number] Ams 800 Urinary Control System Cuff Implanted:Qty : 1 on 01/02/2011 at [facility] Urethra [employer]MS [employer] 11/21/2012 [id number] / / [id number] Ams 800 Urinary Control System Pressure Regulating Balloon Implanted:Qty : 1 on 02/22/2013 by Sree Wiley MD at [facility] Right: Groin [employer]MS [employer] 11/05/2017 / [id number] / [id number] Description:pressure range 7 1-80 cm H2O Procedures Procedure Name Priority Date/Time Associated Diagnosis Comments ECHO COMPLETE Routine 02/03/2025 3:01 PM CDT Aortic valve stenosis, etiology of cardiac valve disease unspecified Essential hypertension Paroxysmal atrial fibrillation (CMS/HCC) Coronary artery disease involving [place] coronary artery of [place] heart without angina pectoris from Last 3 Months Results * ECHO COMPLETE - CONTRAST AND STRAIN IF INDICATED (02/03/2025 3:01 PM CDT) EJECTION FRACTION 57 INTERFACE SYSTEM 02/03/2025 2:11 PM CDT Narrative INTERFACE SYSTEM - 02/06/2025 3:12 PM CDT [address] [place] [address] [email or web address] Transthoracic Echocardiogram Patient: Stanislav Velazquez Study ID: [id number] Gender: M : 1940 Age: 84 Race: JUSTA Height 170.2cm Study Date: 02/03/2025 Weight: 102.1kg Access. #: [id number] BP: *Referring Physician:James Louis M.D., Dilshad Louis M.D., Bruce *Ordering Physician:James Louis M.D., Bruce healthcare insurance sales agent: Nurse: Indications: Atrial fibrillation. Aortic stenosis. STUDY CONCLUSIONS: SUMMARY: - Left ventricle: The cavity size was normal. Wall thickness was increased in a pattern of mild LVH. Global systolic function is normal. For Epic reporting: the left ventricular ejection fraction is 57% . Wall motion is normal; there are no regional wall motion abnormalities. Diastolic function assessment consistent with abnormal left ventricular relaxation (grade 1 diastolic dysfunction). - Aortic valve: Trileaflet. The leaflets are moderately thickened and moderately calcified. Mobility is restricted. There was moderate stenosis. The peak systolic velocity is 3.6m/sec. The mean systolic gradient is 24mm Hg. The valve area is 1.2cm^2. - Mitral valve: The leaflets are mildly thickened. Mild regurgitation. - Left atrium: The atrium is moderately dilated. - Right ventricle: The cavity size is normal. Systolic function is normal. - Tricuspid valve: Mild regurgitation. - Pulmonary arteries: The peak systolic pressure is 24mm Hg. Cardiac Anatomy: LEFT VENTRICLE: The cavity size was normal. Wall thickness was increased in a pattern of mild LVH. Global systolic function is normal. For Epic reporting: the left ventricular ejection fraction is 57% . Wall motion is normal; there are no regional wall motion abnormalities. Diastolic function assessment consistent with abnormal left ventricular relaxation (grade 1 diastolic dysfunction). AORTIC VALVE: Trileaflet. The leaflets are moderately thickened and moderately calcified. Mobility is restricted. There was moderate stenosis. No significant regurgitation. The mean systolic gradient is 24mm Hg. The peak systolic gradient is 51mm Hg. The LVOT to aortic valve VTI ratio is 0.27. The valve area is 1.2cm^2. The ratio of LVOT to aortic valve peak velocity is 0.28. AORTA: Aortic root: The root is normal-sized. MITRAL VALVE: The leaflets are mildly thickened. Mild regurgitation. The mean diastolic gradient is 2mm Hg. The peak diastolic gradient is 6mm Hg. LEFT ATRIUM: The atrium is moderately dilated. RIGHT VENTRICLE: The cavity size is normal. Systolic function is normal. PULMONIC VALVE: Structurally normal valve. No significant regurgitation. TRICUSPID VALVE: Structurally normal valve. Mild regurgitation. RIGHT ATRIUM: The atrium was normal in size. SYSTEMIC VEINS: Inferior vena cava: The IVC is normal-sized. PERICARDIUM: There is no pericardial effusion. Measurements Left ventricle Value Ref 01/22/2024 IVS, ED, LAX (H) 1.4 cm 0.6 - 1.0 KAREN, LAX (L) 3.7 cm 4.2 - 5.8 3.5 KAREN/bsa, LAX (L) 1.7 cm/m^2 2.2 - 3.0 1.7 IVS, ED (H) 1.4 cm 0.6 - 1.0 1.2 PW, ED (H) 1.3 cm 0.6 - 1.0 1.1 EDV, 2-p (N) 148 ml 62 - 150 ESV, 2-p (H) 64 ml 21 - 61 EF, 2-p (N) 57 % 52 - 72 SV, 2-p 85 ml --------- SV/bsa, 2-p 39.7 ml/m^2 --------- E', lat herman, TDI (L) 6.1 cm/sec >=10.0 6.6 E/e', lat herman, TDI (N) 13 <=13 10 E', med herman, TDI (L) 4.8 cm/sec >=7.0 4.8 E/e', med herman, TDI 16 --------- 13 E', avg, TDI 5.4 cm/sec --------- 5.7 E/e', avg, TDI (N) 14 <=14 11 LVOT Value Ref 01/22/2024 Diam, S 2.4 cm --------- 2.1 Area 4.5 cm^2 --------- 3.5 Peak virgil, S 1.01 m/sec --------- 1.17 VTI, S 27.2 cm --------- 25.7 Right ventricle Value Ref 01/22/2024 KAREN minor ax, A4C base (N) 3.7 cm 2.5 - 4.1 KAREN minor ax, A4C mid (H) 3.6 cm 1.9 - 3.5 KAREN major ax, A4C (H) 9.3 cm 5.9 - 8.3 TAPSE, MM (N) 2.8 cm >=1.7 Pressure, S 28 mm Hg --------- 41 S' lateral (N) 15.7 cm/sec >=9.5 Left atrium Value Ref 01/22/2024 AP dim, ES (H) 5.2 cm 3.0 - 4.0 4.5 AP dim index, ES (H) 2.4 cm/m^2 1.5 - 2.3 2.2 SI dim, A4C 7.1 cm --------- 5.9 Area ES, A4C (H) 25 cm^2 <=20 19 Area/bsa ES, A4C 11.69 cm^2/m^2 --------- 9.17 SI dim, A2C 6.4 cm --------- 6.6 SI dim, shorter 6.4 cm --------- 5.9 Vol, ES, 1-p A2C (H) 98 ml 18 - 58 60 Vol/bsa, ES, 1-p A2C (H) 46 ml/m^2 11 - 43 29 Vol, ES, 2-p 87 ml --------- 56 Vol/bsa, ES, 2-p (H) 41 ml/m^2 16 - 34 27 LA/Ao root ratio 1.37 --------- 1.18 Right atrium Value Ref 01/22/2024 SI dim, ES, A4C (H) 5.9 cm 3.4 - 5.3 SI dim/bsa, ES, A4C (N) 2.8 cm/m^2 1.8 - 3.0 Area, ES, A4C (H) 21 cm^2 10 - 18 Vol, ES, 1-p A4C 63 ml --------- Vol/bsa, ES, 1-p A4C (N) 29 ml/m^2 11 - 39 Aortic valve Value Ref 01/22/2024 Peak v, S 3.6 m/sec --------- 3.6 Mean v, S 2.18 m/sec --------- 2.57 VTI, S 100.0 cm --------- 78.6 Mean grad, S 24 mm Hg --------- 30 Peak grad, S 51 mm Hg --------- 51 LVOT/AV, VTI ratio 0.27 --------- 0.33 MONA, VTI 1.2 cm^2 --------- 1.1 MONA/bsa, VTI 0.58 cm^2/m^2 --------- 0.55 LVOT/AV, Vpeak ratio 0.28 --------- 0.33 MONA, Vmax 1.3 cm^2 --------- 1.1 MONA/bsa, Vmax 0.59 cm^2/m^2 --------- 0.55 Mitral valve Value Ref 01/22/2024 Mean v, D 0.53 m/sec --------- 0.65 Peak E 0.76 m/sec --------- 0.65 Peak A 1.17 m/sec --------- 1.13 Decel time 369 ms --------- 447 PHT 142 ms --------- Mean grad, D 2 mm Hg --------- 2 Peak grad, D 6 mm Hg --------- 2 Peak E/A ratio 0.6 --------- 0.6 A-VTI 41.3 cm --------- 39.4 MVA, PHT 1.6 cm^2 --------- MVA/bsa, PHT 0.73 cm^2/m^2 --------- Pulmonic valve Value Ref 01/22/2024 Peak v, S 1.02 m/sec --------- 1.09 Peak grad, S 4 mm Hg --------- 5 Aortic root Value Ref 01/22/2024 Root diam, 3.8 cm --------- 3.8 Ascending aorta Value Ref 01/22/2024 AAo AP diam, S 3.5 cm --------- 3.9 AAo AP diam/bsa, S 1.6 cm/m^2 --------- 1.9 Pulmonary artery Value Ref 01/22/2024 Pressure, S 24 mm Hg --------- 36 Systemic veins Value Ref 01/22/2024 Estimated RA pressure 5 mm Hg --------- 25 Legend: (L) and (H) dariel values outside specified reference range. (N) michel values inside specified reference range. Procedure data: Procedure information: A transthoracic echocardiogram was performed. Scanning was performed from the parasternal, apical, and subcostal acoustic windows. Transthoracic echocardiogram. Complete 2D, complete spectral Doppler, and color Doppler. Birthdate: Patient birthdate: 1940. Age: Patient is 84year(s) old. Sex: gender: male. Height: 170.2cm. 67in. Weight: 102.1kg. 225lb. Body mass index: 35.2kg/m^2. Body surface area: 2.13m^2. Study date: Study date: 02/03/2025. Study time: 02:11 PM. Prepared and Electronically Authenticated Pranav Louis Bruce [id number]:12:50 Procedure Note Dilshad Louis MD - 02/06/2025 [place] [address] [email or web address] Transthoracic Echocardiogram Patient: Stanislav Velazquez Study ID: [id number] Gender: M : 1940 Age: 84 Race: [facility] Height 170.2cm Study Date: 02/03/2025 Weight: 102.1kg Access. #: [id number] BP: *Referring Physician:James Louis M.D., Dilshad Louis M.D., Bruce *Ordering Physician:James Louis M.D., Bruce healthcare insurance sales agent: Nurse: Indications: Atrial fibrillation. Aortic stenosis. STUDY CONCLUSIONS: SUMMARY: - Left ventricle: The cavity size was normal. Wall thickness was increasedin a pattern of mild LVH. Global systolic function is normal. For Epic reporting: the left ventricular ejection fraction is 57% . Wall motionis normal; there are no regional wall motion abnormalities. Diastolicfunction assessment consistent with abnormal left ventricular relaxation (grade1 diastolic dysfunction). - Aortic valve: Trileaflet. The leaflets are moderately thickened and moderately calcified. Mobility is restricted. There was moderatestenosis. The peak systolic velocity is 3.6m/sec. The mean systolic gradient is24mm Hg. The valve area is 1.2cm^2. - Mitral valve: The leaflets are mildly thickened. Mild regurgitation. - Left atrium: The atrium is moderately dilated. - Right ventricle: The cavity size is normal. Systolic function isnormal. - Tricuspid valve: Mild regurgitation. - Pulmonary arteries: The peak systolic pressure is 24mm Hg. Cardiac Anatomy: LEFT VENTRICLE: The cavity size was normal. Wall thickness was increasedin a pattern of mild LVH. Global systolic function is normal. For Epicreporting: the left ventricular ejection fraction is 57% . Wall motion is normal;there are no regional wall motion abnormalities. Diastolic function assessment consistent with abnormal left ventricular relaxation (grade 1 diastolic dysfunction). AORTIC VALVE: Trileaflet. The leaflets are moderately thickened and moderately calcified. Mobility is restricted. There was moderatestenosis. No significant regurgitation. The mean systolic gradient is 24mm Hg. Thepeak systolic gradient is 51mm Hg. The LVOT to aortic valve VTI ratio is 0.27.The valve area is 1.2cm^2. The ratio of LVOT to aortic valve peak velocityis 0.28. AORTA: Aortic root: The root is normal-sized. MITRAL VALVE: The leaflets are mildly thickened. Mild regurgitation.The mean diastolic gradient is 2mm Hg. The peak diastolic gradient is 6mmHg. LEFT ATRIUM: The atrium is moderately dilated. RIGHT VENTRICLE: The cavity size is normal. Systolic function isnormal. PULMONIC VALVE: Structurally normal valve. No significantregurgitation. TRICUSPID VALVE: Structurally normal valve. Mild regurgitation. RIGHT ATRIUM: The atrium was normal in size. SYSTEMIC VEINS: Inferior vena cava: The IVC is normal-sized. PERICARDIUM: There is no pericardial effusion. Measurements Left ventricle Value Ref 01/22/2024 IVS, ED, LAX (H) 1.4 cm 0.6 - 1.0 KAREN, LAX (L) 3.7 cm 4.2 - 5.8 3.5 KAREN/bsa, LAX (L) 1.7 cm/m^2 2.2 - 3.0 1.7 IVS, ED (H) 1.4 cm 0.6 - 1.0 1.2 PW, ED (H) 1.3 cm 0.6 - 1.0 1.1 EDV, 2-p (N) 148 ml 62 - 150 ESV, 2-p (H) 64 ml 21 - 61 EF, 2-p (N) 57 % 52 - 72 SV, 2-p 85 ml --------- SV/bsa, 2-p 39.7 ml/m^2 --------- E', lat herman, TDI (L) 6.1 cm/sec >=10.0 6.6 E/e', lat herman, TDI (N) 13 <=13 10 E', med herman, TDI (L) 4.8 cm/sec >=7.0 4.8 E/e', med herman, TDI 16 --------- 13 E', avg, TDI 5.4 cm/sec --------- 5.7 E/e', avg, TDI (N) 14 <=14 11 LVOT Value Ref 01/22/2024 Diam, S 2.4 cm --------- 2.1 Area 4.5 cm^2 --------- 3.5 Peak virgil, S 1.01 m/sec --------- 1.17 VTI, S 27.2 cm --------- 25.7 Right ventricle Value Ref 01/22/2024 KAREN minor ax, A4C base (N) 3.7 cm 2.5 - 4.1 KAREN minor ax, A4C mid (H) 3.6 cm 1.9 - 3.5 KAREN major ax, A4C (H) 9.3 cm 5.9 - 8.3 TAPSE, MM (N) 2.8 cm >=1.7 Pressure, S 28 mm Hg --------- 41 S' lateral (N) 15.7 cm/sec >=9.5 Left atrium Value Ref 01/22/2024 AP dim, ES (H) 5.2 cm 3.0 - 4.0 4.5 AP dim index, ES (H) 2.4 cm/m^2 1.5 - 2.3 2.2 SI dim, A4C 7.1 cm --------- 5.9 Area ES, A4C (H) 25 cm^2 <=20 19 Area/bsa ES, A4C 11.69 cm^2/m^2 --------- 9.17 SI dim, A2C 6.4 cm --------- 6.6 SI dim, shorter 6.4 cm --------- 5.9 Vol, ES, 1-p A2C (H) 98 ml 18 - 58 60 Vol/bsa, ES, 1-p A2C (H) 46 ml/m^2 11 - 43 29 Vol, ES, 2-p 87 ml --------- 56 Vol/bsa, ES, 2-p (H) 41 ml/m^2 16 34 27 LA/Ao root ratio 1.37 --------- 1.18 Right atrium Value Ref 01/22/2024 SI dim, ES, A4C (H) 5.9 cm 3.4 - 5.3 SI dim/bsa, ES, A4C (N) 2.8 cm/m^2 1.8 - 3.0 Area, ES, A4C (H) 21 cm^2 10 - 18 Vol, ES, 1-p A4C 63 ml --------- Vol/bsa, ES, 1-p A4C (N) 29 ml/m^2 11 - 39 Aortic valve Value Ref 01/22/2024 Peak v, S 3.6 m/sec --------- 3.6 Mean v, S 2.18 m/sec --------- 2.57 VTI, S 100.0 cm --------- 78.6 Mean grad, S 24 mm Hg --------- 30 Peak grad, S 51 mm Hg --------- 51 LVOT/AV, VTI ratio 0.27 --------- 0.33 MONA, VTI 1.2 cm^2 --------- 1.1 MONA/bsa, VTI 0.58 cm^2/m^2 --------- 0.55 LVOT/AV, Vpeak ratio 0.28 --------- 0.33 MONA, Vmax 1.3 cm^2 --------- 1.1 MONA/bsa, Vmax 0.59 cm^2/m^2 --------- 0.55 Mitral valve Value Ref 01/22/2024 Mean v, D 0.53 m/sec --------- 0.65 Peak E 0.76 m/sec --------- 0.65 Peak A 1.17 m/sec --------- 1.13 Decel time 369 ms --------- 447 PHT 142 ms --------- Mean grad, D 2 mm Hg --------- 2 Peak grad, D 6 mm Hg --------- 2 Peak E/A ratio 0.6 --------- 0.6 A-VTI 41.3 cm --------- 39.4 MVA, PHT 1.6 cm^2 --------- MVA/bsa, PHT 0.73 cm^2/m^2 --------- Pulmonic valve Value Ref 01/22/2024 Peak v, S 1.02 m/sec --------- 1.09 Peak grad, S 4 mm Hg --------- 5 Aortic root Value Ref 01/22/2024 Root diam, 3.8 cm --------- 3.8 Ascending aorta Value Ref 01/22/2024 AAo AP diam, S 3.5 cm --------- 3.9 AAo AP diam/bsa, S 1.6 cm/m^2 --------- 1.9 Pulmonary artery Value Ref 01/22/2024 Pressure, S 24 mm Hg --------- 36 Systemic veins Value Ref 01/22/2024 Estimated RA pressure 5 mm Hg --------- 25 Legend: (L) and (H) dariel values outside specified reference range. (N) michel values inside specified reference range. Procedure data: Procedure information: A transthoracic echocardiogram was performed.Scanning was performed from the parasternal, apical, and subcostal acousticwindows. Transthoracic echocardiogram. Complete 2D, complete spectralDoppler, and color Doppler. Birthdate: Patient birthdate: 1940. Age:Patient is 84year(s) old. Sex: gender: male. Height: 170.2cm. 67in.Weight: 102.1kg. 225lb. Body mass index: 35.2kg/m^2. Body surface area: 2.13m^2. Study date: Study date: 02/03/2025. Study time: 02:11 PM. Prepared and Electronically Authenticated Pranav Louis Bruce [id number]:12:50 us Dilshad Louis MD ORDERABLES Final Result Performing Organization Address City/State/[facility] de Phone Number INTERFACE SYSTEM Refer to clinic/hospital department from Last 3 Months Insurance MEDICARE PART A AND B [place] Member Subscriber Plan / Payer (Ef fective 2024-Present) Name:Stanislav Velazquez Relation to Subscriber:Self Name:Stanislav Velazquez Payer ID:Not on file Group ID:Not on file Type:Medicaid Address: [address] Advance Directives For more information, please contact: [phone] * Full Code (Latest Code Status on File) Date Activated Date Inactivated Comments 04/19/2017 1:24 PM 04/21/2017 2:53 PM * Full Code Date Activated Date Inactivated Comments 04/18/2017 8:11 PM 04/19/2017 1:24 PM * Full Code Date Activated Date Inactivated Comments 05/27/2013 2:18 PM 05/28/2013 2:09 AM * Full Code Date Activated Date Inactivated Comments 02/22/2013 8:52 AM 02/22/2013 5:27 PM * Full Code Date Activated Date Inactivated Comments 02/22/2013 5:43 AM 02/22/2013 8:52 AM Care Teams Corporate Development Officer Relationship Specialty Start Date End Date Kyaw Guy MD [address] [place] [address] [place] [id number] PCP - General Internal Medicine 02/10/13
--- OUTSIDE RECORDS SUMMARY | 2025-02-20 14:07 | XMS_ITS | Encounter Summary ---
Author Organization [facility] Address [address] [place] [address] Phone Care Team Providers Care Safety Compliance Specialist Name Role Phone Kyaw Guy MD Primary Care Provider Miley Cantor RN Unavailable [phone] Ralph Delaney MD Unavailable [phone] Lise Falcon LPN Unavailable Lise Falcon LPN Unavailable Lise Falcon LPN Unavailable [phone] Encounter Details Date Type Department Care Team (Late st Contact Info) Description 10/15/2017 Orders Only [facility] ProviderFelicita MD [address] [place] [address] Social History Tobacco Use Types Packs/Day Years Used Date Smoking Tobacco: Never Smokeless Tobacco: Never Alcohol Use Standard Drinks/Week Comments Yes 0 (1 standard drink = 0.6 oz pur e alcohol) Sex and Gender Information Value Date Recorded Sex Assigned at Not on file Legal Sex Male 7:27 PM TREKKING GUIDE Gender Identity Male 12/11/2023 6:23 PM CDT Sexual Orientation Straight 12/11/2023 6: 23 PM CDT documented as of this encounter Plan of Treatment Not on file documented as of this encounter Procedures Procedure Name Priority Date/Time Associated Diagnosis Comments DISCHARGE LABORATORY CUMULATIVE REPORT 10/15/2017 12:00 AM TREKKING GUIDE documented in this encounter Results * DISCHARGE LABORATORY CUMULATIVE REPORT (10/15/2017 12:00 AM TREKKING GUIDE) Narrative 10/15/2017 12:00 AM TREKKING GUIDE Ordered by an unspecified provider. us Historical Provider LAB BLOOD ORDERABLES Sachi l Result documented in this encounter Visit Diagnoses Not on filedocumented in this encounter Care Teams Safety Compliance Specialist Relationship Specialty Start Date End Date Kyaw Guy MD PCP - General 12/06/16 Miley Cantor RN [address] [place] [address] [address] [place] [address] Stamp Analyst 10/15/17 12/21/17 Ralph Delaney MD [address] [place] [address] [place] [address] Referring Physician Ophthalmology 04/05/20 Lise Falcon LPN [address] [place] [address] [address] [place] [address] ACO Care Sewer Contractor 07/23/22 08/01/22 Lise Falcon LPN [address] [place] [address] [address] [place] [address] ACO Care Sewer Contractor 08/02/22 11/14/22 Lise Falcon LPN [address] [place] [address] [address] [place] [address] ACO Care Sewer Contractor 11/19/22 12/03/22 documented as of this encounter
--- OUTSIDE RECORDS SUMMARY | 2025-02-20 14:07 | XMS_ITS | Clinical Summary ---
Author Organization [facility] Address [facility] [place] [address] Care Team Providers Care Nuclear Control Operator Name Role Phone Kyaw Guy MD Primary Care Provider Hunter Purdy MD Unavailable [phone] Ho Dooley DO Unavailable Neda Nunn MD Unavailable Source Comments [facility],non-owned Affiliates and Associated Physician Practices is amultiple site organization consisting of ambulatory clinics and hospital sitesin [place], [place], [place] and [place]. This disclosure is being madepursuant to the Care Everywhere program and may not contain all information available regarding this patient. Last updated 18.[facility] Allergies Active Allergy Reactions Criticality Noted Date Comments Hydrocodone Other 11/22/2022 Hydrocodone-Acetaminophe n 10/04/2015 Other reaction(s): Hallucination Hydrocodone-Acetaminophe n Psychiatric Medium 02/10/2013 Minocycline 09/10/2010 Other reaction(s): Syncope Passed out Morphine Other 09/10/2010 Other reaction(s): Hypotension Passed out other [Other] Rash Medium Received name: Skin Cleanser Red Dye Other 11/22/2022 Skin Adhesives Rash Medium 07/30/2022 Skin cleanser Medications * Be aware that medications may not be up to date on this document. Alwaysverify current medications with the patient. simvastatin (ZOCOR) 10 MG tablet Take 20 mg by mouth at bedtime Active triamterene-hyd rochlorothiazid e (MAXZIDE-25) 37.5-25 MG tabletIndicatio ns:MATIAS (obstructive sleep apnea) once daily 4 Active losartan (COZAAR) 100 MG tabletIndicatio ns:MATIAS (obstructive sleep apnea) once daily 4 Active warfarin (COUMADIN) 5 MG tabletIndicatio ns:MATIAS (obstructive sleep apnea) every evening 4 Active metoprolol tartrate (LOPRESSOR) 50 MG tablet Take 50 mg by mouth 2 times daily 3 6 Active fluticasone propionate (FLONASE) 50 MCG/ACT nasal spray SHAKE WELL AND USE 2 SPRAYS IN EACH NOSTRIL EVERY DAY 1 Bottle 5 6 Active Additional Information Patient taking differently: SHAKE WELL AND USE 2 SPRAYS IN EACH NOSTRIL EVERY DAY NEEDED, Reported on 03/06/2018 clopidogrel (PLAVIX) 75 MG tablet Take 75 mg by mouth once daily 7 Active nitroGLYCERIN (NITROSTAT) 0.4 MG tablet Dissolve 0.4 mg under the tongue every 5 minutes as needed 7 Active famotidine (PEPCID) 20 MG tablet TAKE 1 TABLET BY MOUTH TWICE DAILY. 8 Active montelukast (SINGULAIR) 10 MG tablet at bedtime 8 Active celecoxib (CELEBREX) 200 MG capsule once daily 8 Active fesoterodine CR 24hr (TOVIAZ) 4 MG tablet at bedtime 8 Active aspirin EC (ECOTRIN) 81 MG tablet Take 81 mg by mouth once daily Active irbesartan (AVAPRO) 300 MG tablet Take 100 mg by mouth 0 Active rosuvastatin (CRESTOR) 20 MG tablet Take 20 mg by mouth once daily 0 Active pantoprazole EC (PROTONIX) 40 MG tablet TAKE 1 TABLET (40 MG TOTAL) BY MOUTH DAILY CANCEL OMEPRAZOLE 0 Active buPROPion SR 12hr (WELLBUTRIN-SR) 150 MG tablet Take 150 mg by mouth 2 times daily 0 Active hydrALAZINE (Apresoline) 10 MG tablet Take 1 (one) tablet by mouth Active Gemtesa 75 MG tablet 4 Active sertraline (Zoloft) 100 MG tablet 4 Active senna-docusate (Senokot-S) 8.6-50 MG tablet Take 1 (one) tablet by mouth 2 times daily Active Entresto 49-51 MG tablet Take 1 (one) tablet by mouth 3 Active potassium chloride ER (Klor-Con M) 20 MEQ tablet 4 Active cyanocobalamin (Vitamin B-12) 1000 MCG tablet Take 1 (one) tablet by mouth once daily Active Active Problems Problem Noted Date Diagnosed Date History of prostate cancer 10/19/2019 Elbow injury 08/28/2015 Benign paroxysmal positional vertigo 05/22/2012 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 Kidney stone 09/13/2010 Family History Medical History Relation Name Comments Cancer Brother High Blood Pressure Brother Cancer Father High Blood Pressure Mother Relation Name Status Comments Brother Father Mother Social History Tobacco Use Types Packs/Day Years Used Date Smoking Tobacco: Former Cigars Q uit: 09/08/2004 Smokeless Tobacco: Never Comments:QUIT 2002 Alcohol Use Standard Drinks/Week Comments Yes 0 (1 standard drink = 0.6 oz pur e alcohol) OCCASIONAL Sex and Gender Information Value Date Recorded Sex Assigned at Not on file Legal Sex Male 6:06 AM NURSE LEADER Gender Identity Not on file Sexual Orientation Not on file Last Filed Vital Signs Vital Sign Reading Time Taken Comments Blood Pressure 162/95 03/12/2018 5:25 PM CDT Pulse 60 03/12/2018 5:24 PM CDT Temperature 36.4 C (97.6 F) 03/12/2018 5:24 PM CDT Respiratory Rate 16 03/12/2018 5:24 PM CDT Oxygen Saturation 94% 03/12/2018 5:24 PM CDT Inhaled Oxygen Concentration - - Weight 126.1 kg (278 lb) 03/12/2018 1:29 PM CDT Height 182.9 cm (6') 03/12/2018 1:29 PM CDT Body Mass Index 37.7 03/12/2018 1:29 PM CDT Plan of Treatment Health Maintenance Due Date Last Done Comments MEDICARE AWV 12 MONTHS 1940 DTAP/TDAP/TD VACCINES (1 - Tdap) 1959 PNEUMOCOCCAL VACCINE 50+ (1 of 1 - PCV) 1990 ZOSTER VACCINE (1 of 2) 1990 Respiratory Syncytial Virus (RSV) Vaccine Pt: or over 60 yrs (1 - 1-dose 75+ series) 2015 COVID-19 VACCINE (1 - 2023- season) 2024 DEPRESSION SCREENING 09/08/2024 INFLUENZA VACCINE (Season Ended) 2025 08/25/2020, 06/22/2019, 07/07/2018, Additional history exists HEPATITIS B VACCINE Aged Out No longe r eligible based on patient's age to complete this topic HIB VACCINE Aged Out No longer eligi ble based on patient's age to complete this topic HPV VACCINE Aged Out No longer eligi ble based on patient's age to complete this topic MENINGOCOCCAL (Group B) VACCINE SHARED DECISION-MAKING Aged Out No longer eligible based on patient's age to complete this topic MENINGOCOCCAL GROUPS A/C/Y/W VACCINE Aged Out No longer eligible based on patient's age to complete this topic Insurance MEDICARE [facility], [facility] Care Teams Nuclear Control Operator Relationship Specialty Start Date End Date Kyaw Guy MD [address] [facility] [address] [place] [address] PCP - General 09/04/10 [place] [address] [facility] [address] [place] [address] Pulmonary Disease 04/03/15 [place] [address] [facility] [address] [place] [address] Orthopedic Surgery 08/15/15 [place] [address] [facility] [address] [place] [address] Orthopedic Surgery 05/09/20
--- OUTSIDE RECORDS SUMMARY | 2025-02-20 14:07 | XMS_ITS | Encounter Summary ---
Author Organization [facility] Address [address] [place] [address] Care Team Providers Care Hall Tender Name Role Phone Kyaw Guy MD Primary Care Provider Ralph Delaney MD Unavailable [phone] Lise Falcon LPN Unavailable Lise Falcon LPN Unavailable Lise Falcon LPN Unavailable [phone] Encounter Details Date Type Department Care Team (Late st Contact Info) Description 07/24/2022 Documentation Neurological Intensive Care Darnell Linares Social History Tobacco Use Types Packs/Day Years Used Date Smoking Tobacco: Never Smokeless Tobacco: Never Alcohol Use Standard Drinks/Week Comments Yes 0 (1 standard drink = 0.6 oz pur e alcohol) PHQ-2 Answer Date Recorded PHQ-2 Total Score (If total score is 3 or more points, staff should administer the PHQ-9) 0 05/02/2022 Sex and Gender Information Value Date Recorded Sex Assigned at Not on file Legal Sex Male 7:27 PM PIGMENT FURNACE TENDER Gender Identity Male 12/11/2023 6:23 PM CDT Sexual Orientation Straight 12/11/2023 6: 23 PM CDT documented as of this encounter Plan of Treatment Not on file documented as of this encounter Visit Diagnoses Not on filedocumented in this encounter Care Teams Hall Tender Relationship Specialty Start Date End Date Kyaw Guy MD PCP - General 12/06/16 Ralph Delaney MD [address] [place] [address] [place] [address] Referring Physician Ophthalmology 04/05/20 Lise Falcon LPN [address] [place] [address] [address] [place] [address] ACO Care Radar Engineer 07/23/22 08/01/22 Lise Falcon LPN [address] [place] [address] [address] [place] [address] ACO Care Radar Engineer 08/02/22 11/14/22 Lise Falcon LPN [address] [place] [address] [address] [place] [address] ACO Care Radar Engineer 11/19/22 12/03/22 documented as of this encounter
--- OUTSIDE RECORDS SUMMARY | 2025-02-20 14:07 | XMS_ITS | Encounter Summary ---
Author Organization [facility] Address [address] [place] [address] Phone Care Team Providers Care Gang Bore Operator Name Role Phone Kyaw Gyu MD Primary Care Provider Miley Cantor RN Unavailable Ralph Delaney MD Unavailable Lise Falcon LPN Unavailable [phone] Lise Falcon LPN Unavailable Lise Falcon LPN Unavailable [phone] Encounter Details Date Type Department Care Team (Late st Contact Info) Description 10/24/2017 Orders Only [facility] ProviderFelicita MD [address] [place] [address] Social History Tobacco Use Types Packs/Day Years Used Date Smoking Tobacco: Never Smokeless Tobacco: Never Alcohol Use Standard Drinks/Week Comments Yes 0 (1 standard drink = 0.6 oz pur e alcohol) Sex and Gender Information Value Date Recorded Sex Assigned at Not on file Legal Sex Male 7:27 PM ENGINE ROOM HELPER Gender Identity Male 12/11/2023 6:23 PM CDT Sexual Orientation Straight 12/11/2023 6: 23 PM CDT documented as of this encounter Plan of Treatment Not on file documented as of this encounter Procedures Procedure Name Priority Date/Time Associated Diagnosis Comments DISCHARGE LABORATORY CUMULATIVE REPORT 10/24/2017 12:00 AM ENGINE ROOM HELPER documented in this encounter Results * DISCHARGE LABORATORY CUMULATIVE REPORT (10/24/2017 12:00 AM ENGINE ROOM HELPER) Narrative 10/24/2017 12:00 AM ENGINE ROOM HELPER Ordered by an unspecified provider. us Historical Provider LAB BLOOD ORDERABLES Sachi l Result documented in this encounter Visit Diagnoses Not on filedocumented in this encounter Care Teams Gang Bore Operator Relationship Specialty Start Date End Date Kyaw Guy MD PCP - General 12/06/16 Miley Cantor RN [address] [place] [address] [address] [place] [address] Knotter Hand 10/15/17 12/21/17 Ralph Delaney MD [address] [place] [address] [place] [address] Referring Physician Ophthalmology 04/05/20 Lise Falcon LPN [address] [place] [address] [address] [place] [address] ACO Care Summer Law Associate 07/23/22 08/01/22 Lise Falcon LPN [address] [place] [address] [address] [place] [address] ACO Care Summer Law Associate 08/02/22 11/14/22 Lise Falcon LPN [address] [place] [address] [address] [place] [address] ACO Care Summer Law Associate 11/19/22 12/03/22 documented as of this encounter
--- OUTSIDE RECORDS SUMMARY | 2025-02-20 14:07 | XMS_ITS | Encounter Summary ---
Author Organization [facility] Address [address] [place] [address] [place] [address] Care Team Providers Care Instrumentation Technician Name Role Phone Kyaw Guy MD Primary Care Provider Hunter Purdy MD Unavailable [phone] Ho Dooley DO Unavailable Neda Nunn MD Unavailable Encounter Details Date Type Department Care Team (Late st Contact Info) Description 05/10/2020 [facility] Outpatient Visit [facility] Orthopedics - Radiology [address] [place] [address] Document, Scanned Social History Tobacco Use Types Packs/Day Years Used Date Smoking Tobacco: Former Cigars Q uit: 09/08/2004 Smokeless Tobacco: Never Comments:QUIT 2002 Alcohol Use Standard Drinks/Week Comments Yes 0 (1 standard drink = 0.6 oz pur e alcohol) OCCASIONAL Sex and Gender Information Value Date Recorded Sex Assigned at Not on file Legal Sex Male 6:06 AM OPERATIONS PROCESSOR Gender Identity Not on file Sexual Orientation Not on file COVID-19 Exposure Response Date Recorded In the last month, have you been in contact with someone who was confirmed or suspected to have Coronavirus / COVID-19? No / Unsure 05/05/2020 2:11 PM CDT documented as of this encounter Plan of Treatment Not on file documented as of this encounter Visit Diagnoses Not on filedocumented in this encounter Care Teams Instrumentation Technician Relationship Specialty Start Date End Date Kyaw Guy MD [address] [facility] [address] [place] [address] PCP - General 09/04/10 [place] [address] [facility] [address] [place], [place] [address] Pulmonary Disease 04/03/15 [place] [address] [facility] [address] [place] [address] Orthopedic Surgery 08/15/15 [place] [address] [facility] [address] [place] [address] Orthopedic Surgery 05/09/20 documented as of this encounter
--- OUTSIDE RECORDS SUMMARY | 2025-02-20 14:07 | XMS_ITS | Continuity of Care Document ---
Author Organization [facility] Address [address] [facility] utisameer Villarreal [address] [place] [address] Phone Care Team Providers Care Forging Press Setter Up Name Role Phone Raheem Yoder MD, MD Unavailable Unavailab le Allergies, Adverse Reactions, Alerts Substance Reaction Status Criticality SKIN CLEANSER COMBINATION NO. 4 Active No Information MINOCYCLINE HCL Active No Informati on morphine Active No Information Medications Medication Instructions Dosage Effective Dates (start - stop) Status Comments Systane 0.4 %-0.3 % Eye Drops - Active Omeprazole 20 mg Cap, Delayed Release - Active Niacin 500 mg Tab - Active Simvastatin 10 mg Tab - Active Clopidogrel 75 mg Tab - Active Amlodipine 5 mg Tab - Active Metoprolol Tartrate 25 mg Tab - Active Procedures Procedure Date Eye Exam Established Pt Office/outpatient Visit, Est One Or More Rx Generated And Transmitted Office/outpatient Visit, Est Office/outpatient Visit, Est Eye Exam Established Pt Eye Exam, New Patient Advance Directives Directive Yes / No Effective Date File Name Resuscitation Not Answered N/A N/A Life Support Not Answered N/A N/A Intubation Not Answered N/A N/A Antibiotics Not Answered N/A N/A IV Fluid Support Not Answered N/A N/A Tube Feed Not Answered N/A N/A Other Directive N/A N/A WARNING:The information contained in this section is historical and is provided for information only and does not constitute a legal document or any assurance that the information is still accurate. Please verify the information with the wang of the legal document before using it for clinical purposes. Encounters Encounter Description Practice Location Reason(s) For Visit Diagnoses Date Provider Providers Copied on Encounter [facility], [address] [place] [address] [address], [place], [place], [id number], tel:[phone] SEC Lexa [facility] Professional No Information 3 Paresh Maciel. [address], [address], [place], [address], [place]. tel:[phone] Referring Provider: Sree Garcia, [address] [place], [address]. tel:[phone] [facility], [address] [place] [address] [address], [place], [place], [id number], tel:[phone] SEC Lexa [facility] Professional No Information 3 Kellyloni Shon. [address] [facility], [facility] [place], [id number], [place]. tel:[phone] Office/outpa tient Visit, Est [facility], [address] [place] [address] [address], [place], [place], [id number], [place] tel:[phone] SEC Lexa [facility] Professional NODULAR CORNEA DEGENSENILE NUCLEAR CATARACTLENS REPLACEMENT NEC 3 Paresh Maciel. [address], [address], [place], [address], [place]. tel:[phone] Referring Provider: Sree Garcia, [address] [facility], [place], [address]. tel:[phone] Office/outpa tient Visit, Est [facility] Eye [facility] [place], [address], [place], [place], [id number], [place] tel:[phone] SEC Lexa NERI Professional No Information 0 Bianca Joshi. [address] [facility], [address], [place], [place], [facility], [place]. tel:[phone] Referring Provider: Sree Garcia, [address] [place], [address]. tel:[phone] Office/outpa tient Visit, [facility] Eye [facility] [place], [address], [place], [place], [id number], tel:[phone] SEC [facility] No Information b- 2-201 0 Bianca Madelyn. [address], [address], [place], [place], [facility], [place]. tel:[phone] Referring Provider: Sree Garcia, [address] [place], [address]. tel:[phone] [place] [address], [address] [place] [address] [address], [place], [place], [id number], [place] tel:[phone] SEC [facility] Professional No Information 0 Bianca Madelyn. [address], [address], [place], [facility], [place]. tel:[phone] Referring Provider: Sree Garcia, [address] [place], [address]. tel:[phone] [place] [address] Eye [facility] [place], [address], [place], [place], [id number], [place] tel:[phone] SEC [facility] Professional No Information 9 0 Bianca Madelyn. [address], [address], [place], [facility], [place]. tel:[phone] Referring Provider: Sree Garcia, [address] [place], [address]. tel:[phone] Family History Family Member Type Diagnosis Age At Onset No Information Payers Payer name Insurance type Covered libertarian ID Authoriza tion(s) Medicare [place] SHERITA [id number] [facility] CI [id number] [employer] CI [id number] Social History Type Description Quantity Date Captured Comments Alcohol Use Details Unknown Caffeine Use Details Unknown Tobacco Use Status Smoking Status No Information Sex Male Chief Complaint And Reason For Visit No Information Reason For Referral Reason For Referral No Information History Of Present Illness Encounter Date Complaint History Of Prese nt Illness No Information Functional Status Date Functional Assessmen t No Information Instructions Date Instruction Additional Infor mattonya UNSATISFACTORY VISIO N - LIKELY FROM SURFACE DISEASE. - CONTINUE LID HYGIENE, ARTIFICIAL TEARS. WANTS TO CONSIDER SUPERFICIAL KERATECTOMY, FOLLOW UP 2 MONTHS. Pseudophakia, OD - e stablished, stable - vision affected - will continue to monitor - Stable. No treatment. Will continue to monitor. Related to Pseudophakia Cataract, Nuclear Sc lerosis, OS - established, worsening - vision affected - will continue to monitor - No treatment currently recommended, patient will monitor vision changes and contact us with any decrease in vision. 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 Recommends using 15 mminutes of heat packs BID. ATs for comfort. Discussed possible surgical options. Discussed recovery from sx, pt will be in pain for about 3 days. Will monitor. 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
--- OUTSIDE RECORDS SUMMARY | 2025-02-20 14:07 | XMS_ITS | Encounter Summary ---
Author Organization [facility] Address [address] [place] [address] Phone Care Team Providers Care Entry Level Account Manager Name Role Phone Kyaw Guy MD Primary Care Provider Ralph Delaney MD Unavailable [phone] Lise Falcon LPN Unavailable Lise Falcon LPN Unavailable Lise Falcon LPN Unavailable [phone] Encounter Details Date Type Department Care Team (Late st Contact Info) Description 07/05/2020 Telephone [facility] Ophthalmology [address] [facility] 6th [place] [address] Pernell Aguilera MD [address] [facility] [address] [place] [address] Social History Tobacco Use Types Packs/Day Years Used Date Smoking Tobacco: Never Smokeless Tobacco: Never Alcohol Use Standard Drinks/Week Comments Yes 0 (1 standard drink = 0.6 oz pur e alcohol) PHQ-2 Answer Date Recorded PHQ-2 Total Score (If total score is 3 or more points, staff should administer the PHQ-9) 0 05/04/2020 Sex and Gender Information Value Date Recorded Sex Assigned at Not on file Legal Sex Male 7:27 PM EMT Gender Identity Male 12/11/2023 6:23 PM CDT Sexual Orientation Straight 12/11/2023 6: 23 PM CDT documented as of this encounter Plan of Treatment Not on file documented as of this encounter Visit Diagnoses Not on filedocumented in this encounter Care Teams Entry Level Account Manager Relationship Specialty Start Date End Date Kyaw Guy MD PCP - General 12/06/16 Ralph Delaney MD [address] [place] [address] [place] [address] Referring Physician Ophthalmology 04/05/20 Lise Falcon LPN [address] [place] [address] ACO Care Personalized Living Manager Nurse 07/23/22 08/01/22 Lise Falcon LPN [address] [place] [address] ACO Care Personalized Living Manager Nurse 08/02/22 11/14/22 Lise Falcon LPN [address] [place] [address] ACO Care Personalized Living Manager Nurse 11/19/22 12/03/22 documented as of this encounter
--- OUTSIDE RECORDS SUMMARY | 2025-02-20 14:07 | XMS_ITS | Clinical Summary ---
Author Organization [facility] Address [address] [place] [address] Care Team Providers Care Call Box Wirer Name Role Phone Kyaw Guy MD Primary Care Provider Ralph Delaney MD Unavailable [phone] Allergies Active Allergy Reactions Criticality Noted Date Comments Emollient Combination No. 16 Unknown Minocycline Syncope High 12/24/2010 Morphine Hypotension,Other (S ee comments) High 09/10/2010 Other reaction(s): Hypotension Passed out Other Rash Medium 04/16/2019 Received name: Skin Cleanser Skin Cleanser Rash Medium Hydrocodone-Acetamino phen Hallucinations Medium 02/10/2013 Medications fluticasone propionate (FLONASE) 50 mcg/actuation nasal spray Administer 1 spray into each nostril daily 48 mL 2 Active rosuvastatin (CRESTOR) 20 mg tablet [...] prn Assessment & Plan (11/15/2020 2:34 PM CUSTOMER ENGAGEMENT REPRESENTATIVE): SND OU Now POW#6 Super K left [...] 04/05/2020 Assessment & Plan (10/18/2020 2:40 PM CUSTOMER ENGAGEMENT REPRESENTATIVE): SND OU Now POW#3 Super K OS Hx of bilateral corneal swelling (Pachymetry 646 um OD; 642 um OS) SND OS>OD Med BCL and Tobradex 1gtt QID post-op Plan - keep BCL for total of 6 weeks - continue TD QID OS RTC 3 weeks Assessment & Plan (10/02/2020 1:56 PM CUSTOMER ENGAGEMENT REPRESENTATIVE): SND OU Now POD5 Super K OS Hx of bilateral corneal swelling (Pachymetry 646 um OD; 642 um OS) Persistent SND OS>OD Med BCL and Tobradex 1gtt QID post-op Toradol as needed (20# given) RTC 2 weeks, sooner if any problem Assessment & Plan (09/30/2020 9:07 PM CUSTOMER ENGAGEMENT REPRESENTATIVE): POD#3 superficial keratectomy OS with Dr. Aguilera [...] understanding. Assessment & Plan (09/30/2020 6:54 PM CUSTOMER ENGAGEMENT REPRESENTATIVE): POD#3 superficial keratectomy OS with Dr. Aguilera for SND (09/27/20). Presents to [facility] after hours for dislodged BCL, unable to adjust/remove and no replacements. BCL removed. New BCL replaced. Continue tobradex 1gtt QID Keep clinic follow up with Dr. Aguilera for 10/02/20. Will notify him of visit. Assessment & Plan (09/27/2020 2:58 PM CUSTOMER ENGAGEMENT REPRESENTATIVE): Hx of SND and possible superk left [...] 10/02/2024 Assessment & Plan (08/20/2024 12:12 PM CUSTOMER ENGAGEMENT REPRESENTATIVE): Avoid ear cleaning techniques Avoid water to ears Follow up as needed Assessment & Plan (07/28/2024 2:57 PM CUSTOMER ENGAGEMENT REPRESENTATIVE): Lotrimin 10 drops into Left EAR, NOT EYE, twice daily for 14 days Avoid ear cleaning techniques Avoid water to ears Follow up in 2-3 weeks to recheck Then yearly for ear checks How to Use Ear Drops Bilateral impacted cerumen 07/28/2024 0 10/02/2024 Assessment & Plan (07/28/2024 2:58 PM CUSTOMER ENGAGEMENT REPRESENTATIVE): Lotrimin 10 drops into Left EAR, NOT [...] Nasal saline spray (Simply saline, Little Remedies, [place], [place]) 2 second sprays or 2 squeezes into each nostril while looking down over the sink, do not need to sniff in twice daily Have Humidifier on the Highest setting on the CPAP No masses, polyps or ulcers in the Upper Airway on Scope today Assessment & Plan (09/13/2021 3:38 PM CUSTOMER ENGAGEMENT REPRESENTATIVE): Likely 2/2 cpap machine in combination with warfarin use INR in office 4.0. 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 Discussed the risks of hypertension. Insomnia 03/26/2012 10/02/2024 Overview (12/12/2016): Insomnia Calculus of kidney 03/26/2012 Overview (12/13/2016): Kidney stone Malignant neoplasm of prostate 03/07/2011 04/15/2018 Overview (12/12/2016): Prostate cancer Depression 03/07/2011 03/22/2019 Overview (12/13/2016): Depression Dehydration 10/02/2024 Encounters Date Type Department Care Team Description 12/28/2024 Orders Only [facility] Primary Care at [address] [place] [address] Kyaw Guy MD 12/28/2024 Telephone [facility] Primary Care at [address] [place] [address] Kyaw Guy MD Symptom Based Call from Last 3 Months Immunizations Immunization Administration Dates Next Due Influenza, Quadrivalent, Hig h Dose, Preservative Free, Intrr 08/13/2021,08/25/2020 Influenza, Split 08/15/2010 Influenza, Trivalent, High D ose, Split, Preservative Free, Intramuscular 06/22/2019,06/24/2018,07/11/2017,06/10,07/18/2015 Influenza, Trivalent, IM (MDV) 4,07/08/2013,07/01/2012,06/19,06/21/2009,08/27/2008 Influenza, Unspecified 10/01/2024(Deferr ed: Patient Refused),06/30/2023(Deferred: Patient Refused),11/17/2022(Deferred: Patient Refused),05/04/2020(Deferred: Patient Refused - vaccine not being given) Pneumococcal Conjugate PCV 13 07/18/2015 Pneumococcal Polysaccharide PPV23 04/27/2021 Surgical History Surgery Date Site/Laterality Comments APPENDECTOMY 09/08/1974 - 09/07/1975 Appendectomy CATARACT EXTRACTION 09/08/2005 - 09/07/2006 Cataract extraction OTHER SURGICAL HISTORY 09/08/1999 - 09/07/2000 Cancer, prostate: PROSTATECOMY OTHER SURGICAL HISTORY 09/08/2010 - 09/07/2011 urinary control system implanted OTHER SURGICAL HISTORY 09/08/2003 - 09/07/2004 percutaneous transluminal balloon angioplasty with insertion of stent into coronary artery CATARACT EXTRACTION Bilateral EYE SURGERY Left cyst removal Medical History Medical History Date Comments Myocardial infarction (HCC) 2000 Myoc ardial infarction Asthma Asthma Malignant neoplasm of prostate (HCC) Cancer, prostate Hx Other Medical IBS Hx Other Medical CAD 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 Hx Other Medical 03/08/2013 surg artificial sphincter Hx Other Medical torn ligament L arm surgery Family History Medical History Relation Name Comments Prostate cancer Brother 1 Cancer -pros villarreal; Coronary artery disease Brother 2 Natacha nary artery disease; Depression Brother 3 Depression; Hypertension Brother 4 Hypertension; Coronary artery disease Brother 5 Natacha nary artery disease; Rheum arthritis Brother 6 Rheumatoid a rthritis; Lung cancer Father Cancer -lung; Hypertension Mother Hypertension; Stroke Mother Stroke; Relation Name Status Comments Brother 1 Brother 2 Brother 3 Brother 4 Brother 5 Brother 6 Father Mother Social History Tobacco Use Types [...] on file Legal Sex Male 7:27 PM CUSTOMER ENGAGEMENT REPRESENTATIVE Gender Identity Male 12/11/2023 6:23 PM CDT Sexual Orientation Straight 12/11/2023 6: 23 PM CDT Obstetrics History Last Filed Vital Signs Vital Sign Reading Time Taken Comments Blood Pressure 116/70 10/01/2024 3:21 PM CUSTOMER ENGAGEMENT REPRESENTATIVE Pulse 71 10/01/2024 3:21 PM CUSTOMER ENGAGEMENT REPRESENTATIVE Temperature 36.6 C (97.8 F) 10/01/2024 3:21 PM CUSTOMER ENGAGEMENT REPRESENTATIVE Respiratory Rate 16 10/01/2024 3:21 PM CUSTOMER ENGAGEMENT REPRESENTATIVE Oxygen Saturation 96% 10/01/2024 3:21 PM CUSTOMER ENGAGEMENT REPRESENTATIVE Inhaled Oxygen Concentration - - Weight 104.8 kg (231 lb) 10/01/2024 3:21 PM CUSTOMER ENGAGEMENT REPRESENTATIVE Height 182.9 cm (6') 10/01/2024 3:21 PM CUSTOMER ENGAGEMENT REPRESENTATIVE Body Mass Index 31.33 10/01/2024 3:21 PM CUSTOMER ENGAGEMENT REPRESENTATIVE Plan of Treatment Health Maintenance Due Date Last Done Comments DTaP/Tdap/Td Vaccine (1 - Tdap) 1951 Hepatitis B Screening 1958 Zoster Vaccine (1 of 2) 1990 Colon Cancer Screening-Colonoscopy 03/31/2012 03/31/2007, 03/31/2007 Prostate Cancer Screening-PSA 04/18/2022, 10/19/2019, 10/02/2018, Additional history exists Influenza Vaccine (Season Ended) 2025 08/13/2021, 08/25/2020, 06/22/2019, Additional history exists Depression Screening 10/01/2025 10/01/2024, 08/29/2023, 03/14/2023, Additional history exists Fall Risk Assessment 10/01/2025 10/01/2024, 08/29/2023, 03/14/2023, Additional history exists Well Visit 65+ 10/01/2025 10/01/2024, 08/09, 05/02/2022, Additional history exists Colon Cancer Screening-CT Colonography Discontinued 03/31/2007, 03/31/2007 Colon Cancer Screening-DNA Stool Discontinued 03/31/20, 03/31/2007 Colon Cancer Screening-FIT Discontinued 03/31/2007, Colon Cancer Screening-Sigmoidoscopy Discontinued 03/31/2007, 03/31/2007 Pneumococcal vaccine 65+ Completed 04/27/2021, 07/09 Procedures Procedure Name Priority Date/Time Associated Diagnosis Comments PSA SCREEN Routine 04/18/2021 12:04 PM CDT Urine frequency HM COLONOSCOPY Routine 03/31/2007 from Last 3 Months or Most Recently Relevant to Health Maintenance Results * PSA screen (04/18/2021 12:04 PM CDT) PSA <0.1 < OR = 4.0 ng/mL [facility] Comment: The total PSA value from this [...] 12:04 PM CDT 04/18/2021 12:05 PM CDT Kyaw Guy MD LAB BLOOD ORDERABLES Fi nal Result [facility] [address] [place] [address] * COLONOSCOPY (03/31/2007) Colonoscopy Abnormal Comment:Subacute diverticuli tis, 8 mm polyp. Historical Provider HEALTH MAINTENANCE Final Result from Last 3 Months or Most Recently Relevant to Health Maintenance Insurance MEDICARE [facility] MEDICARE [facility] BLUE CROSS MEDICARE SUPPLEMENT Advance Directives For more information, please contact: [phone] Documents on File Type Date Recorded Patient Pantograph Machine Set Up Operator Expl anation ADVANCE DIRECTIVE 11/15/2022 1:21 PM DNR * Full Code (Latest Code Status on File) Date Activated Date Inactivated Comments 11/14/2022 4:49 PM 11/18/2022 7:09 PM * Full Code Date Activated Date Inactivated Comments 07/13/2022 2:19 PM 07/22/2022 7:03 PM Care Teams Call Box Wirer Relationship Specialty Start Date End Date Kyaw Guy MD PCP - General 12/06/16 Ralph Delaney MD [address] [place] [address] [place] [address] Referring Physician Ophthalmology 04/05/20
--- OUTSIDE RECORDS SUMMARY | 2025-02-20 14:07 | XMS_ITS | Encounter Summary ---
Author Organization [facility] Address [address] [place] [address] [place] [address] Care Team Providers Care Personnel And Payroll Technician Name Role Phone Kyaw Guy MD Primary Care Provider Hunter Purdy MD Unavailable [phone] Ho Dooley DO Unavailable Neda Nunn MD Unavailable Encounter Details Date Type Department Care Team (Late st Contact Info) Description 05/10/2020 [facility] Outpatient Visit [facility] Orthopedics - Radiology [address] [place] [id number] Document, Scanned Social History Tobacco Use Types Packs/Day Years Used Date Smoking Tobacco: Former Cigars Q uit: 09/08/2004 Smokeless Tobacco: Never Comments:QUIT 2002 Alcohol Use Standard Drinks/Week Comments Yes 0 (1 standard drink = 0.6 oz pur e alcohol) OCCASIONAL Sex and Gender Information Value Date Recorded Sex Assigned at Not on file Legal Sex Male 6:06 AM ROLL HAND Gender Identity Not on file Sexual Orientation [...] on filedocumented in this encounter Care Teams Personnel And Payroll Technician Relationship Specialty Start Date End Date Kyaw Guy MD [address] [facility] [address] [place] [address] PCP - General 09/04/10 [place] [address] [facility] [address] [place], [place] [id number] Pulmonary Disease 04/03/15 [place] [address] [facility] [address] [place] [address] Orthopedic Surgery 08/15/15 [place] [address] [facility] [address] [place] [address] Orthopedic Surgery 05/09/20 documented as of this encounter
[2025-02-20 14:16] VITALS: BP 124/83; PULSE 61; RESP 19; O2SAT 92
[2025-02-20 14:20] LABS: Basophils Percent Auto 0.5 % (0.2-1.2); Eosinophils Absolute Auto 0.2 K/mm3 (0-0.3); Eosinophils Percent Auto 2.8 % (0-4.4); Hematocrit 40.3 % (42.0-52.0); Hemoglobin 13.3 g/dL (14.0-18.0); Immature Granulocyte Absolute 0.02 K/mm3 (0.00-0.031); Immature Granulocyte Percent A 0.3 % (0-0.5); Lymphocytes Absolute Auto 1.33 K/mm3 (0.9-3.2); Mean Corpuscular Hemoglobin 30.4 pg (26-34); Mean Platelet Volume 11.2 fl (7.4-10.4); Monocytes Absolute Auto 0.7 K/mm3 (0.1-0.6); Monocytes Percent Auto 8.6 % (2.6-8.5); Neutrophils Absolute Auto 5.5 K/mm3 (1.3-6.7); Neutrophils Percent Auto 70.8 % (45.5-73.1); Platelet Count Result 173 k/mm3 (150-375); Red Blood Count 4.38 M/mm3 (4.6-6.20); Red Cell Distribution Width 12.6 % (11.5-14.5); White Blood Count 7.8 K/mm3 (4.5-10.0)
[2025-02-20 14:27] LABS: Lactic Acid Reflex 1.2 mmol/L (0.7-2.0)
[2025-02-20 14:31] VITALS: BP 123/76; PULSE 58; RESP 20; O2SAT 93
[2025-02-20] MEDS: MECLIZINE HCL 25 MG TABLET PO (14:32)
--- NOTE | 2025-02-20 14:32 | PC.NURSE ---
BG 118.
[2025-02-20 14:38] LABS: Glucose Point of Care 118 mg/dl (65-105)
[2025-02-20 14:47] VITALS: BP 130/86; PULSE 64; RESP 18; O2SAT 95
[2025-02-20 14:51] LABS: Alanine Aminotransferase 15 U/L (6-50); Albumin Level 3.8 g/dL (3.5-5.1); Alkaline Phosphatase 74 U/L (38-126); Anion Gap 8 mmol/L (4-12); Aspartate Amino Transferase 20 U/L (17-59); Bilirubin,Total 0.6 mg/dL (0.2-1.3); Blood Urea Nitrogen 21 mg/dL (9-20); Calcium 9.8 mg/dL (8.4-10.2); Carbon Dioxide 27 mmol/L (22-30); Chloride 104 mmol/L (98-107); Estimated Glomerular Filt Rate > 60; Glucose 114 mg/dL (65-110); Potassium 3.9 mmol/L (3.4-5.0); Sodium 139 mmol/L (137-145); Total Protein 6.9 g/dL (6.3-8.2)
[2025-02-20 14:54] LABS: Influenza A QL RT-PCR Negative (Negative); Influenza B QL RT-PCR Negative (Negative); RSV RNA, RT-PCR Negative (Negative); SARS-CoV-2 RNA PCR Negative (Negative)
[2025-02-20 14:59] LABS: Partial Thromboplastin Time 29.6 Seconds (22.3-36.8); Prothrombin Time 13.1 Seconds (11.1-14.7)
== END 2025-02-20 17:39 ==
PROVIDERS: Emergency Provider Emergency Medicine; PCP Internal Medicine
DX: R42 Dizziness and giddiness (principal); Z20.822 Contact with and (suspected) exposure to COVID-19; I69.951 Hemiplegia and hemiparesis following unspecified cerebrovascular disease affecting right dominant side; I67.2 Cerebral atherosclerosis; I44.0 Atrioventricular block, first degree; I49.3 Ventricular premature depolarization; R94.31 Abnormal electrocardiogram [ECG] [EKG]
CPT/HCPCS: 36415; 70496; 70498; 71045; 80053; 82948; 83605; 85025; 85610; 85730; 87637; 93005; 99284; A9270; Q9967